=== PATIENT | male | born 1975 ===

== ENCOUNTER 2022-10-30 13:03 | Emergency (ER) | payer BC, SELFPAY ==
--- NOTE | ~2022-10-30 | XR_ITS ---
EXAMINATION: XR CHEST CLINICAL INFORMATION: SOB COMPARISON: None available. TECHNIQUE: Frontal view of the chest was obtained. FINDINGS: No significant abnormality is noted involving the heart, lungs, mediastinum, bony thorax or soft tissues. XR/XR chest 1V IMPRESSION: Unremarkable chest examination.
[2022-10-30 13:07] VITALS: BP 150/103; PULSE 111; RESP 18; TEMP 36.6; O2SAT 96; BMI 32.3
--- NOTE | 2022-10-30 13:07 | ED_ITS ---
HPI - Chest Pain General Chief Complaint: Chest Pain <STANLEY Edmondson - Last Filed: 10/30/22 13:09> Stated Complaint: Chest pain <STANLEY Edmondson Last Filed: 10/30/22 13:09> Time Seen by Provider: 10/30/22 15:44 <STANLEY Edmondson Last Filed: 10/30/22 13:09> Source: patient <STANLEY Mercedes Last Filed: 10/30/22 18:57> Mode of arrival: ambulatory <STANLEY Mercedes Last Filed: 10/30/22 18:57> Limitations: no limitations <STANLEY Mercedes Last Filed: 10/30/22 18:57> History of Present Illness HPI narrative: This is a 47-year-old male presenting to the emergency department with reports of chest pain, shortness of breath, congestion x3 weeks worsening over the past 4 days. Patient reports his chest pain is substernal in nature, n onradiating and at times associated with shortness of breath particularly with deep breathing. Patient does reports recent travel to [place] last week. Patient tells me feels short of breath both at rest and with exertion. No history of DVT or PE. Denies fevers, chills, nausea, vomiting, abdominal pain, headache, vision changes, lower extremity swelling, dizziness and weakness. <STANLEY Mercedes Last Filed: 10/30/22 18:57> Related Data Home Medications: Previous Rx's Medication Instructions Recorded albuterol sulfate 90 mcg/actuation 2 inh inhalation Q4-6H PRN 10/30/22 breath activated powder inhaler shortness of breath or wheezing #1 ea amoxicillin 875 mg-potassium 1 tab PO BID 7 days #14 tabs 10/30/22 clavulanate 125 mg tablet prednisone 20 mg tablet 40 mg PO DAILY 5 days #10 tabs 10/30/22 <STANLEY Edmondson Last Filed: 10/30/22 13:09> Allergies/Adverse Reactions: Allergies Allergy/AdvReac Type Severity Reaction Status Date / Time No Known Allergies Allergy Verified 10/30/22 13:10 <STANLEY Edmondson Last Filed: 10/30/22 13:09> Review of Systems Review of Systems: Constitutional : No Weight loss, No Fever, No Chills, No Fatigue, No Malaise ENT/Mouth : No sore throat, No Rhinorrhea Eyes: No Eye Pain, No Swelling, No Redness Cardiovascular : + Chest Pain, + SOB, + Dyspnea on Exertion, No Orthopnea, No Edema, No Palpitations Respiratory : + Cough, No Sputum, No Wheezing Gastrointestinal : No Nausea, No Vomiting, No Diarrhea, No Constipation, No abdominal Pain, No Hematochezia, No Melena Genitourinary : No Dysuria, No Urinary Frequency, No Hematuria, Musculoskeletal : No joint pain, No Myalgias, No Joint Swelling Skin : No Skin Lesions, No rash Neuro : No Weakness, No Numbness, No Dizziness, No Headache Psych : No Anxiety/Panic, No Depression Heme/Lymph: No Bruising, No Bleeding,No Lymphadenopathy Endocrine : No Polyuria, No Polydipsia All other systems reviewed and are negative <STANLEY Mercedes - Last Filed: 10/30/22 18:57> Yes all other systems are reviewed and are negative <STANLEY Mercedes - Last Filed: 10/30/22 18:57> [facility] Past Medical History Attestation statement: The following information was validated with the patient. <STANLEY Mercedes - Last Filed: 10/30/22 18:57> Source: old records reviewed and nursing notes reviewed <STANLEY Mercedes - Last Filed: 10/30/22 18:57> Social History Social History: Social History Alcohol intake: current Alcohol intake frequency: holidays/special occasions only Smoked in Last 30 Days: No Use of substances other than those prescribed or required for medical reasons: No Advance Directives: No Advance Directives Information Provided: Yes <STANLEY Edmondson - Last Filed: 10/30/22 13:09> Physical Exam Vital Signs: Vital Signs: Last Vital Signs Temp 97.8 F 10/30/22 13:07 Pulse 105 H 10/30/22 16:22 Resp 17 10/30/22 16:22 BP 129/90 H 10/30/22 16:22 Pulse Ox 97 10/30/22 16:22 O2 Del Method Room Air 10/30/22 16:22 BMI result Body Mass Index 32.3 <STANLEY Edmondson - Last Filed: 10/30/22 13:09> Vital Signs: Last Vital Signs Temp 97.8 F 10/30/22 13:07 Pulse 105 H 10/30/22 16:22 Resp 17 10/30/22 16:22 BP 129/90 H 10/30/22 16:22 Pulse Ox 97 10/30/22 16:22 O2 Del Method Room Air 10/30/22 16:22 BMI result Body Mass Index 32.3 vss <STANLEY Mercedes - Last Filed: 10/30/22 18:57> Appearance: Alert.? Oriented X3.? No acute distress.? Head: Normocephalic, atraumatic, no step-offs or deformities Eyes: Pupils equal, round and reactive to light.? Neck: Normal inspection.? Neck supple.? CVS: Normal heart rate and rhythm.? Pulses normal.? Respiratory: No respiratory distress.? Breath sounds normal.? Abdomen: Soft and nontender.? Skin: Skin warm and dry.? Normal skin color.? Normal skin turgor.? Extremities: No lower extremity edema.? No calf ttp. 5/5 strength to bilateral upper and lower extremities Back: No midline tenderness, no C-spine tenderness, full range of motion, no CVA tenderness bilaterally Neuro: Oriented X 3.? No motor deficit.? No sensory deficit. CN 2-12 intact <STANLEY Mercedes - Last Filed: 10/30/22 18:57> Course Course Course Narrative: RME--47yo M c/o cough x3 weeks with assoc chest discomfort and SOB. Recently travel to [place], had sx prior to travel HTNsive in triage 150/103. sating 96% on RA in no distress EKG, COVID/FLU, CXR ordered <STANLEY Edmondson - Last Filed: 10/30/22 13:09> Reevaluation(s) Reevaluation #1: Influenza and COVID negative. X-ray unremarkable. Basic labs pending. <STANLEY Mercedes - Last Filed: 10/30/22 18:57> Time: 16:10 <STANLEY Mercedes - Last Filed: 10/30/22 18:57> Reevaluation #2: Patient's CBC within normal limits. Chemistry with no acute findings. Troponin negative, EKG nonischemic, patient's heart score 1 low score MACE of 0.9-1.7% . D-dimer negative, unlikely that this is PE. This is likely br onchitis. Patient to be discharged home on at that this time due to length of symptoms. Educated patient on diagnosis and treatment plan, answered all question, patient verbalizes understanding. At this time patient will be discharged home, advised to return with new or worsening symptoms. Educated on worrisome signs and symptoms and when to return. At this time I feel comfortable discharge home. <STANLEY Mercedes - Last Filed: 10/30/22 18:57> Time: 18:54 <STANLEY Mercedes - Last Filed: 10/30/22 18:57> Medical Decision Making Medical Decision Making [facility] Narrative: 1608 47-year-old male presents with URI symptoms with associated substernal chest pain and shortness of breath x3 weeks worsening over the past 3-4 days. Recent travel to [place]. No history of DVT or PE. Physical exam benign. Not tachycardic on my exam however for triage patient was tachycardic which seems to have resolved. Also hypertensive. Blood pressure will be rechecked. Likely bronchitis. Other differentials include sinusitis, viral illness. Unlikely that this is PE, pneumonia, pneumothorax, ACS, CHF Plan at this time basic labs, imaging, viral testing. <STANLEY Mercedes - Last Filed: 10/30/22 18:57> Differential Diagnosis Differential Diagnoses: The differential diagnosis associated with the presentation includes <STANLEY Mercedes Last Filed: 10/30/22 18:57> Likely bronchitis. Other differentials include sinusitis, viral illness. Unlikely that this is PE, pneumonia, pneumothorax, ACS, CHF <STANLEY Mercedes Last Filed: 10/30/22 18:57> Admission/Observation Consideration of admission/observation: Escalation of care including admission/observation considered <STANLEY Victoria - Last Filed: 04/11/23 18:57> Unlikely <STANLEY Mercedes - Last Filed: 10/30/22 18:57> Lab Data MDM Lab Attestation statement: I reviewed the patient's lab results. <STANLEY Mercedes - Last Filed: 10/30/22 18:57> Result Diagrams: 10/30/22 16:28 10/30/22 16:28 <STANLEY Edmondson - Last Filed: 10/30/22 13:09> Labs: Lab Results 10/30/22 10/30/22 10/30/22 Range/Units 14:41 14:41 16:28 WBC 4.8 (4.8-10.8) X10*3/uL RBC 5.01 (4.60-5.80) X10*6/uL Hgb 15.8 (14.0-18.0) g/dl Hct 45.0 (42.0-52.0) % MCV 89.8 (80.0-98.0) fL MCH 31.5 (27.0-33.0) pg MCHC 35.1 (31.0-36.0) g/dl RDW 12.2 (11.0-16.0) % Plt Count 269 (160-400) X10*3/uL MPV 9.5 (9.4-12.4) fL Immature Gran % (Auto) 0.2 (0.0-0.4) % Neut % (Auto) 45.1 (45-73) % Lymph % (Auto) 37.0 (20-40) % Garvin % (Auto) 15.8 H (2-11) % Eos % (Auto) 1.5 (0-4) % Baso % (Auto) 0.4 (0-2) % Lymph # (Auto) 1.8 (1.2-4.9) X10*3/uL Garvin # (Auto) 0.8 (0.1-1.2) X10*3/uL Eos # (Auto) 0.1 (0.0-0.4) X10*3/uL Baso # (Auto) 0.0 (0.0-0.2) X10*3/uL Abs Immat Gran (auto) 0.01 (0.00-0.03) X10*3/uL Absolute Neuts (auto) 2.2 (2.0-8.3) x10*3/uL Absolute Nucleated RBC 0.000 (0.0-0.012) X10*3/uL Nucleated RBC % (auto) 0.0 (0.0-0.2) /100WBC D-Dimer High Sensitivty NG/ML Sodium (135-145) mmol/L Potassium (3.3-5.1) mmol/L Chloride (96-108) mmol/L Carbon Dioxide (22-29) mmol/L Anion Gap (12-20) BUN (9-16) mg/dL Creatinine (0.5-1.4) mg/dL Estim Creat Clear Calc Estimated GFR Random Glucose (60-115) mg/dL Calcium (8.4-10.2) mg/dL Total Bilirubin (0.0-1.0) mg/dL AST (5-37) U/L ALT (0-40) U/L Alkaline Phosphatase (39-117) U/L Troponin I High Sens (<3.5-35.0) ng/L Total Protein (6.5-8.0) g/dL Albumin (3.5-5.0) g/dL COVID-19 ([facility]) Negative (Negative) COVID-19 Clin Com See Note Influenza Type A (ANA) Negative (Negative) Influenza Type B (ANA) Negative (Negative) Influenza A & B Note See Note 10/30/22 10/30/22 10/30/22 Range/Units 16:28 16:28 16:28 WBC (4.8-10.8) X10*3/uL RBC (4.60-5.80) X10*6/uL Hgb (14.0-18.0) g/dl Hct (42.0-52.0) % MCV (80.0-98.0) fL MCH (27.0-33.0) pg MCHC (31.0-36.0) g/dl RDW (11.0-16.0) % Plt Count (160-400) X10*3/uL MPV (9.4-12.4) fL Immature Gran % (Auto) (0.0-0.4) % Neut % (Auto) (45-73) % Lymph % (Auto) (20-40) % Garvin % (Auto) (2-11) % Eos % (Auto) (0-4) % Baso % (Auto) (0-2) % Lymph # (Auto) (1.2-4.9) X10*3/uL Garvin # (Auto) (0.1-1.2) X10*3/uL Eos # (Auto) (0.0-0.4) X10*3/uL Baso # (Auto) (0.0-0.2) X10*3/uL Abs Immat Gran (auto) (0.00-0.03) X10*3/uL Absolute Neuts (auto) (2.0-8.3) x10*3/uL Absolute Nucleated RBC (0.0-0.012) X10*3/uL Nucleated RBC % (auto) (0.0-0.2) /100WBC D-Dimer High Sensitivty < 150 NG/ML Sodium 138 (135-145) mmol/L Potassium 4.7 (3.3-5.1) mmol/L Chloride 102 (96-108) mmol/L Carbon Dioxide 28 (22-29) mmol/L Anion Gap 13 (12-20) BUN 15 (9-16) mg/dL Creatinine 1.12 (0.5-1.4) mg/dL Estim Creat Clear Calc 84.1 Estimated GFR > 60 Random Glucose 250 H (60-115) mg/dL Calcium 9.3 (8.4-10.2) mg/dL Total Bilirubin 0.3 (0.0-1.0) mg/dL AST 31 (5-37) U/L ALT 61 H (0-40) U/L Alkaline Phosphatase 66 (39-117) U/L Troponin I High Sens 4.4 (<3.5-35.0) ng/L Total Protein 7.1 (6.5-8.0) g/dL Albumin 4.1 (3.5-5.0) g/dL COVID-19 ([facility]) (Negative) COVID-19 Clin Com Influenza Type A (ANA) (Negative) Influenza Type B (ANA) (Negative) Influenza A & B Note <STANLEY Edmondson - Last Filed: 10/30/22 13:09> Lab Results 10/30/22 10/30/22 10/30/22 Range/Units 14:41 14:41 16:28 WBC 4.8 (4.8-10.8) X10*3/uL RBC 5.01 (4.60-5.80) X10*6/uL Hgb 15.8 (14.0-18.0) g/dl Hct 45.0 (42.0-52.0) % MCV 89.8 (80.0-98.0) fL MCH 31.5 (27.0-33.0) pg MCHC 35.1 (31.0-36.0) g/dl RDW 12.2 (11.0-16.0) % Plt Count 269 (160-400) X10*3/uL MPV 9.5 (9.4-12.4) fL Immature Gran % (Auto) 0.2 (0.0-0.4) % Neut % (Auto) 45.1 (45-73) % Lymph % (Auto) 37.0 (20-40) % Garvin % (Auto) 15.8 H (2-11) % Eos % (Auto) 1.5 (0-4) % Baso % (Auto) 0.4 (0-2) % Lymph # (Auto) 1.8 (1.2-4.9) X10*3/uL Garvin # (Auto) 0.8 (0.1-1.2) X10*3/uL Eos # (Auto) 0.1 (0.0-0.4) X10*3/uL Baso # (Auto) 0.0 (0.0-0.2) X10*3/uL Abs Immat Gran (auto) 0.01 (0.00-0.03) X10*3/uL Absolute Neuts (auto) 2.2 (2.0-8.3) x10*3/uL Absolute Nucleated RBC 0.000 (0.0-0.012) X10*3/uL Nucleated RBC % (auto) 0.0 (0.0-0.2) /100WBC D-Dimer High Sensitivty NG/ML Sodium (135-145) mmol/L Potassium (3.3-5.1) mmol/L Chloride (96-108) mmol/L Carbon Dioxide (22-29) mmol/L Anion Gap (12-20) BUN (9-16) mg/dL Creatinine (0.5-1.4) mg/dL Estim Creat Clear Calc Estimated GFR Random Glucose (60-115) mg/dL Calcium (8.4-10.2) mg/dL Total Bilirubin (0.0-1.0) mg/dL AST (5-37) U/L ALT (0-40) U/L Alkaline Phosphatase (39-117) U/L Troponin I High Sens (<3.5-35.0) ng/L Total Protein (6.5-8.0) g/dL Albumin (3.5-5.0) g/dL COVID-19 ([facility]) Negative (Negative) COVID-19 Clin Com See Note Influenza Type A (ANA) Negative (Negative) Influenza Type B (ANA) Negative (Negative) Influenza A & B Note See Note 10/30/22 10/30/22 10/30/22 Range/Units 16:28 16:28 16:28 WBC (4.8-10.8) X10*3/uL RBC (4.60-5.80) X10*6/uL Hgb (14.0-18.0) g/dl Hct (42.0-52.0) % MCV (80.0-98.0) fL MCH (27.0-33.0) pg MCHC (31.0-36.0) g/dl RDW (11.0-16.0) % Plt Count (160-400) X10*3/uL MPV (9.4-12.4) fL Immature Gran % (Auto) (0.0-0.4) % Neut % (Auto) (45-73) % Lymph % (Auto) (20-40) % Garvin % (Auto) (2-11) % Eos % (Auto) (0-4) % Baso % (Auto) (0-2) % Lymph # (Auto) (1.2-4.9) X10*3/uL Garvin # (Auto) (0.1-1.2) X10*3/uL Eos # (Auto) (0.0-0.4) X10*3/uL Baso # (Auto) (0.0-0.2) X10*3/uL Abs Immat Gran (auto) (0.00-0.03) X10*3/uL Absolute Neuts (auto) (2.0-8.3) x10*3/uL Absolute Nucleated RBC (0.0-0.012) X10*3/uL Nucleated RBC % (auto) (0.0-0.2) /100WBC D-Dimer High Sensitivty < 150 NG/ML Sodium 138 (135-145) mmol/L Potassium 4.7 (3.3-5.1) mmol/L Chloride 102 (96-108) mmol/L Carbon Dioxide 28 (22-29) mmol/L Anion Gap 13 (12-20) BUN 15 (9-16) mg/dL Creatinine 1.12 (0.5-1.4) mg/dL Estim Creat Clear Calc 84.1 Estimated GFR > 60 Random Glucose 250 H (60-115) mg/dL Calcium 9.3 (8.4-10.2) mg/dL Total Bilirubin 0.3 (0.0-1.0) mg/dL AST 31 (5-37) U/L ALT 61 H (0-40) U/L Alkaline Phosphatase 66 (39-117) U/L Troponin I High Sens 4.4 (<3.5-35.0) ng/L Total Protein 7.1 (6.5-8.0) g/dL Albumin 4.1 (3.5-5.0) g/dL COVID-19 ([facility]) (Negative) COVID-19 Clin Com Influenza Type A (ANA) (Negative) Influenza Type B (ANA) (Negative) Influenza A & B Note <STANLEY Mercedes - Last Filed: 10/30/22 18:57> Independent Interpretation I performed an independent interpretation of an: EKG (Ventricular rate of 107, IA normal, QRS normal, QT/QTC normal. EKG with sinus tachycardia no ST elevations or inversions concerning for ischemia.) and Plain X-Ray (Unremarkable) <STANLEY Mercedes - Last Filed: 10/30/22 18:57> Radiology Impression Discussion of test interpretation with radiology: I have reviewed the radiologist's reading. <STANLEY Mercedes - Last Filed: 10/30/22 18:57> Core Measures AMI core measures followed: Yes <STANLEY Mercedes - Last Filed: 10/30/22 18:57> Measure exclusions: not indicated <STANLEY Mercedes - Last Filed: 10/30/22 18:57> Critical Care Time Critical Care Time Critical Care Time: No <STANELY Mercedes - Last Filed: 10/30/22 18:57> Discharge Plan Discharge Clinical Impression: Bronchitis <STANLEY Edmondson Last Filed: 10/30/22 13:09> Patient Disposition: Home, Self-Care <STANLEY Edmondson - Last Filed: 10/30/22 13:09> Instructions: Acute Bronchitis (ED) <STANLEY Edmondson Last Filed: 10/30/22 13:09> Additional Instructions: Take your medications as prescribed. If you were prescribed antibiotics today, it is important that you take your medication to their entirety, do not skip any doses, do not finish them early. Follow-up with your primary care provider this week. Return to the emergency department with new or worsening symptoms. Such as fevers, chills, chest pain, shortness of breath, nausea, vomiting, dizziness, headache, vision changes, lethargy In case of emergency call 911 XR/XR chest 1V IMPRESSION: Unremarkable chest examination. You tested negative for flu and COVID. Your cardiac workup was reassuring you had negative cardiac enzyme an abnormal EKG. Your D-dimer screening test for blood clot was negative, unlikely that this is a blood clot. <STANLEY Edmondosn - Last Filed: 10/30/22 13:09> Prescriptions: New prednisone 20 mg tablet 40 mg PO DAILY 5 Days Qty: 10 0RF amoxicillin-pot clavulanate 875-125 mg tablet 1 tab PO BID 7 Days Qty: 14 0RF albuterol sulfate 90 mcg/actuation aerosol powdr breath activated 2 inh inhalation Q4-6H PRN (Reason: shortness of breath or wheezing) Qty: 1 0RF <STANLEY Edmondson Last Filed: 10/30/22 13:09> Referrals: Kacey Kinsey MD [Primary Care Provider] - 2 days <STANLEY Edmondson - Last Filed: 10/30/22 13:09> Stand Alone Forms: Work/School Release <STANLEY Edmondson - Last Filed: 10/30/22 13:09>
--- NOTE | 2022-10-30 13:07 | ECG_ITS ---
Test Reason : sob Blood Pressure : / mmHG Vent. Rate : 107 BPM Atrial Rate : 107 BPM P-R Int : 154 ms QRS Dur : 090 ms QT Int : 328 ms P-R-T Axes : 040 -21 000 degrees QTc Int : 437 ms Sinus tachycardia Nonspecific T wave abnormality Abnormal ECG No previous ECGs available Referred By: Medina Newton Electronically Signed By:SEVEN MCGRATH MD
[2022-10-30 15:10] LABS: COVID-19 Test Negative (Negative); IDNOW Serial# 08D9AD1C; IDNOW Serial# 9DB6401D; Influenza A Negative (Negative); Influenza B2 Negative (Negative)
[2022-10-30 16:22] VITALS: BP 129/90; PULSE 105; RESP 17; O2SAT 97
[2022-10-30 16:33] LABS: MANUAL DIFF FLAG NO
[2022-10-30 16:40] LABS: Basophils Percent Auto 0.4 % (0-2); Eosinophils Absolute Auto 0.1 X10*3/uL (0.0-0.4); Eosinophils Percent Auto 1.5 % (0-4); Hemoglobin 15.8 g/dl (14.0-18.0); Imm Gran Abs Auto 0.01 X10*3/uL (0.00-0.03); Imm Gran Pct Auto 0.2 % (0.0-0.4); Lymphocytes Absolute Auto 1.8 X10*3/uL (1.2-4.9); Mean Corpuscular HGB Conc 35.1 g/dl (31.0-36.0); Mean Corpuscular Hemoglobin 31.5 pg (27.0-33.0); Mean Corpuscular Volume 89.8 fL (80.0-98.0); Mean Platelet Volume 9.5 fL (9.4-12.4); Monocytes Absolute Auto 0.8 X10*3/uL (0.1-1.2); Monocytes Percent Auto 15.8 % (2-11); Neutrophils Absolute Auto 2.2 x10*3/uL (2.0-8.3); Neutrophils Percent Auto 45.1 % (45-73); Platelet Count 269 X10*3/uL (160-400); Red Blood Count 5.01 X10*6/uL (4.60-5.80); Red Cell Distribution Width 12.2 % (11.0-16.0); White Blood Count 4.8 X10*3/uL (4.8-10.8)
[2022-10-30 16:54] LABS: Alanine Aminotransferase 61 U/L (0-40); Albumin Level 4.1 g/dL (3.5-5.0); Alkaline Phosphatase 66 U/L (39-117); Anion Gap 13 (12-20); Aspartate Amino Transferase 31 U/L (5-37); Bilirubin Total 0.3 mg/dL (0.0-1.0); Blood Urea Nitrogen 15 mg/dL (9-16); Calcium 9.3 mg/dL (8.4-10.2); Carbon Dioxide 28 mmol/L (22-29); Chloride 102 mmol/L (96-108); Creatinine Clr Calc Pharmacy 84.1; Estimated Glomerular Filt Rate > 60; Glucose Random 250 mg/dL (60-115); Potassium 4.7 mmol/L (3.3-5.1); Sodium 138 mmol/L (135-145); Total Protein 7.1 g/dL (6.5-8.0)
[2022-10-30 17:01] LABS: Troponin-I High Sensitivity 4.4 ng/L (<3.5-35.0)
[2022-10-30 18:41] LABS: D Dimer High Sensitivity < 150 NG/ML
== END 2022-10-30 19:13 | disposition home or self-care (01) ==
PROVIDERS: Physician Assistant; Emergency Provider Student in an Organized Health Care Education/Training Program; PCP Internal Medicine
DX: J40 Bronchitis, not specified as acute or chronic (principal); R07.89 Other chest pain; R06.02 Shortness of breath; Z20.822 Contact with and (suspected) exposure to COVID-19; Z20.828 Contact with and (suspected) exposure to other viral communicable diseases; Z79.899 Other long term (current) drug therapy
CPT/HCPCS: 36415; 71045; 80053; 84484; 85025; 85379; 87502; 87635; 93005; 99283; 99284

== ENCOUNTER 2024-01-12 16:19 | Emergency (ER) | payer BC, SELFPAY ==
--- NOTE | ~2024-01-12 | CT_ITS ---
EXAMINATION: CT head/brain wo IV con CLINICAL INFORMATION: headache since Saturday COMPARISON: None. TECHNIQUE: Contiguous axial imaging was performed from the skull base to vertex without intravenous contrast. This CT examination was performed using dose optimization techniques as appropriate, variously including the following: * Automated exposure control * Adjustment of mA and/or kV according to patient size (this includes techniques or standardized protocols for targeted exams where dose is matched to indication/reason for exam; i.e. extremities or head) * Use of iterative reconstruction technique DLP: 650 mGy-cm. FINDINGS: There is no evidence of acute intracranial hemorrhage or territorial infarction. Little to white matter differentiation is well preserved. No abnormal mass effect or midline shift is seen. No extra-axial fluid collections are identified. No hydrocephalus. Mineralization the bilateral basal ganglia. No significant volume loss. There is no abnormal attenuation within the brain parenchyma. The cerebellar tonsils are well positioned. No acute osseous or soft tissue abnormality. Visualized portions of the orbits are unremarkable. Small fluid level in the posterior left ethmoid air cells. Remaining visualized paranasal sinuses and mastoid air cells are well-aerated. CT/CT head/brain wo IV con IMPRESSION: No acute intracranial hemorrhage or edematous territorial infarction.
[2024-01-12 16:33] VITALS: BP 144/102; PULSE 104; RESP 16; TEMP 36.6; O2SAT 97; BMI 31.5
--- NOTE | 2024-01-12 16:38 | ECG_ITS ---
Test Reason : DIZZINESS Blood Pressure : / mmHG Vent. Rate : 102 BPM Atrial Rate : 102 BPM P-R Int : 148 ms QRS Dur : 094 ms QT Int : 338 ms P-R-T Axes : 039 -20 -14 degrees QTc Int : 440 ms Sinus tachycardia Minimal voltage criteria for LVH, may be normal variant ( R in aVL ) Nonspecific T wave abnormality Abnormal ECG When compared with ECG of 30-OCT-2022 13:20, Nonspecific T wave abnormality now evident in Anterior leads Referred By: Jhoan Lozano Electronically Signed By:SEVEN MCGRATH MD
--- NOTE | 2024-01-12 16:41 | ED.GENADULT ---
HPI - General Adult General Chief complaint: Headache Stated complaint: headache since saturday, dizziness since yesterday Time Seen by Provider: 01/12/24 17:17 Source: patient Mode of arrival: ambulatory Limitations: no limitations History of Present Illness ED Provider: ban RIVAS narrative: Patient's history of diabetes on Trulicity and metformin complaining of headache for last 4 days bilateral diffuse headache with no nausea vomiting had some light sensitivity no fever no chills patient's blood sugar is on the higher side on arrival it was 300 recheck was 292 Related Data Previous Rx's ?Medication ?Instructions ?Recorded albuterol sulfate 90 mcg/actuation 2 inh inhalation Q4-6H PRN 10/30/22 breath activated powder inhaler shortness of breath or wheezing #1 ea amoxicillin 875 mg-potassium 1 tab PO BID 7 days #14 tabs 10/30/22 clavulanate 125 mg tablet prednisone 20 mg tablet 40 mg (2 x 20 mg) PO DAILY 5 days 10/30/22 #10 tabs ycnaieydgj-atnyxzqwhzuyj-rzvxmguc 1 tab PO Q6H PRN haeadace #20 tabs 01/12/24 50 mg-325 mg-40 mg tablet Allergies Allergy/AdvReac Type Severity Reaction Status Date / Time No Known Allergies Allergy Verified 01/12/24 16:39 Review of Systems Review of Systems: Yes all other systems are reviewed and are negative [facility] Social History Social History Alcohol intake: current Alcohol intake frequency: holidays/special occasions only Advance Directives: No Advance Directives Information Provided: No Do you have a plan to hurt others: No Plan Physical Exam ED Vital Signs: Vital Signs - 24 hr 01/12/24 16:33 01/12/24 18:29 Temperature 97.9 F 97.9 F Pulse Rate 104 H 104 H Respiratory Rate 16 16 Blood Pressure 144/102 H 144/102 H Pulse Oximetry 97 97 Oxygen Delivery Method Room Air Room Air BMI result Body Mass Index 31.5 Appearance: Alert. Oriented X3. No acute distress. Eyes: PERRLA, No Nystagmus ENT: Pharynx normal. Oral Mucosa moist no temporal artery tenderness Neck: Normal inspection. Neck supple. CVS: Normal heart rate and rhythm. Pulses normal. Respiratory: No respiratory distress. Equal air entry bilateral, no wheezing/rales/rhonchi Abdomen: Soft and nontender. Bowel sounds are present, no mass palpable, no CVA tenderness Skin: Skin warm and dry. Normal skin color. Normal skin turgor. Extremities: No lower extremity edema. No calf tenderness Neuro: Oriented X 3. No motor deficit. No sensory deficit.No cerebellar signs , cranial nerves II-XII intact Course Course Course Narrative: RME: Done by STANLEY Lozano. Patient presents to ED for general headache since last Saturday. Patient denies any recent trauma, neck stiffness, fever, chills, slurred speech, facial droop, positive extremity, loss of vision. Patient taking Motrin and excision for slight relief. Physical exam negative for signs of any neuro deficits. Labs EKG head CT scan ordered Medications Administered Discontinued Medications Generic Name Dose Route Start Last Admin Trade Name Freq PRN Reason Stop Dose Admin Acetaminophen/Butalbital/Caffeine 1 tab 01/12/24 17:47 01/12/24 18:25 Butalb/Acetamin/Caff 50/325/40 Tablet PO 01/12/24 17:48 1 tab ONCE ONE Administration Insulin Human Lispro 6 unit 01/12/24 18:01 01/12/24 18:25 Insulin Lispro 100 Unit/Ml 3 Ml Vial SUBCUT 01/12/24 18:02 6 unit ONCE ONE Administration Medical Decision Making Differential Diagnosis Differential Diagnoses: The differential diagnosis associated with the presentation includes Hyperglycemia/migraine/atypical headache/tension headache/sinusitis Lab Data MDM Lab Attestation statement: I reviewed the patient's lab results. 01/12/24 16:50 01/12/24 16:50 Labs: Lab Results 01/12/24 Range/Units 16:50 WBC 7.8 (4.8-10.8) X10*3/uL RBC 5.20 (4.60-5.80) X10*6/uL Hgb 16.5 (14.0-18.0) g/dl Hct 46.8 (42.0-52.0) % MCV 90.0 (80.0-98.0) fL MCH 31.7 (27.0-33.0) pg MCHC 35.3 (31.0-36.0) g/dl RDW 12.2 (11.0-16.0) % Plt Count 249 (160-400) X10*3/uL MPV 9.5 (9.4-12.4) fL Immature Gran % (Auto) 0.3 (0.0-0.4) % Neut % (Auto) 62.2 (45-73) % Lymph % (Auto) 26.7 (20-40) % Ward % (Auto) 9.8 (2-11) % Eos % (Auto) 0.6 (0-4) % Baso % (Auto) 0.4 (0-2) % Lymph # (Auto) 2.1 (1.2-4.9) X10*3/uL Ward # (Auto) 0.8 (0.1-1.2) X10*3/uL Eos # (Auto) 0.1 (0.0-0.4) X10*3/uL Baso # (Auto) 0.0 (0.0-0.2) X10*3/uL Abs Immat Gran (auto) 0.02 (0.00-0.03) X10*3/uL Absolute Neuts (auto) 4.8 (2.0-8.3) x10*3/uL Absolute Nucleated RBC 0.000 (0.0-0.012) X10*3/uL Nucleated RBC % (auto) 0.0 (0.0-0.2) /100WBC PT 11.2 (11.1-13.3) SEC INR 0.9 (0.9-1.1) APTT 30.0 (26.0-36.8) SEC Sodium 139 (135-145) mmol/L Potassium 3.9 (3.3-5.1) mmol/L Chloride 106 (96-108) mmol/L Carbon Dioxide 21 L (22-29) mmol/L Anion Gap 16 (12-20) BUN 15 (9-16) mg/dL Creatinine 0.97 (0.5-1.4) mg/dL Estim Creat Clear Calc 94.9 Estimated GFR > 60 Random Glucose 300 H (60-115) mg/dL Calcium 9.5 (8.4-10.2) mg/dL Total Bilirubin 0.3 (0.0-1.0) mg/dL AST 30 (5-37) U/L ALT 56 H (0-40) U/L Alkaline Phosphatase 68 (39-117) U/L Troponin I High Sens 3.5 (<3.5-35.0) ng/L Total Protein 8.0 (6.5-8.0) g/dL Albumin 4.4 (3.5-5.0) g/dL Influenza Type A (PCR) NEGATIVE (Negative) Influenza Type B (PCR) NEGATIVE (Negative) RSV RNA Qual (PCR) NEGATIVE (Negative) SARS-CoV-2 RNA (RT-PCR) NEGATIVE (Negative) Independent Interpretation I performed an independent interpretation of an: CT Scan Radiology Impression Discussion of test interpretation with radiology: I have reviewed the radiologist's reading. Discharge Plan Discharge Clinical Impression: Migraine, Controlled diabetes mellitus with hyperglycemia Patient Disposition: Home, Self-Care Instructions: Migraine Headache (ED), Diabetes and Nutrition (ED) Additional Instructions: Drink plenty of fluids Likely have complex migraine Medication for migraine headache as prescribed Take your medicine for diabetes and follow up with specialist Prescriptions: New djzsfkyiom-doearqttezkap-oiwb 50-325-40 mg tablet 1 tab PO Q6H PRN (Reason: haeadace) Qty: 20 0RF No Action prednisone 20 mg tablet 40 mg PO DAILY 5 Days Qty: 10 0RF amoxicillin-pot clavulanate 875-125 mg tablet 1 tab PO BID 7 Days Qty: 14 0RF albuterol sulfate 90 mcg/actuation aerosol powdr breath activated 2 inh inhalation Q4-6H PRN (Reason: shortness of breath or wheezing) Qty: 1 0RF Referrals: Annel Ramírez MD [Physician] - 1 week Interventions: ED Discharge Assessment Last Done: 01/12/24 18:29 Discharge Date/Time: 01/12/24 18:29 Print Language: Indonesian
[2024-01-12 16:55] LABS: MANUAL DIFF FLAG NO
[2024-01-12 16:58] LABS: Basophils Percent Auto 0.4 % (0-2); Eosinophils Absolute Auto 0.1 X10*3/uL (0.0-0.4); Eosinophils Percent Auto 0.6 % (0-4); Hematocrit 46.8 % (42.0-52.0); Hemoglobin 16.5 g/dl (14.0-18.0); Imm Gran Abs Auto 0.02 X10*3/uL (0.00-0.03); Imm Gran Pct Auto 0.3 % (0.0-0.4); Lymphocytes Absolute Auto 2.1 X10*3/uL (1.2-4.9); Lymphocytes Percent Auto 26.7 % (20-40); Mean Corpuscular HGB Conc 35.3 g/dl (31.0-36.0); Mean Corpuscular Hemoglobin 31.7 pg (27.0-33.0); Mean Platelet Volume 9.5 fL (9.4-12.4); Monocytes Absolute Auto 0.8 X10*3/uL (0.1-1.2); Monocytes Percent Auto 9.8 % (2-11); Neutrophils Absolute Auto 4.8 x10*3/uL (2.0-8.3); Neutrophils Percent Auto 62.2 % (45-73); Platelet Count 249 X10*3/uL (160-400); Red Cell Distribution Width 12.2 % (11.0-16.0); White Blood Count 7.8 X10*3/uL (4.8-10.8)
[2024-01-12 17:14] LABS: Alanine Aminotransferase 56 U/L (0-40); Albumin Level 4.4 g/dL (3.5-5.0); Alkaline Phosphatase 68 U/L (39-117); Anion Gap 16 (12-20); Aspartate Amino Transferase 30 U/L (5-37); Bilirubin Total 0.3 mg/dL (0.0-1.0); Blood Urea Nitrogen 15 mg/dL (9-16); Calcium 9.5 mg/dL (8.4-10.2); Carbon Dioxide 21 mmol/L (22-29); Chloride 106 mmol/L (96-108); Creatinine Clr Calc Pharmacy 94.9; Estimated Glomerular Filt Rate > 60; Glucose Random 300 mg/dL (60-115); Potassium 3.9 mmol/L (3.3-5.1); Sodium 139 mmol/L (135-145)
[2024-01-12 17:20] LABS: Troponin-I High Sensitivity 3.5 ng/L (<3.5-35.0)
[2024-01-12 17:34] LABS: Influenza A PCR NEGATIVE (Negative); Influenza B PCR NEGATIVE (Negative); Resp Syncy Virus RNA Qual PCR NEGATIVE (Negative); SARS COV2 PCR INHOUSE NEGATIVE (Negative)
[2024-01-12 17:48] LABS: INTERNATIONAL NORM RATIO 0.9 (0.9-1.1); Prothrombin Time 11.2 SEC (11.1-13.3)
[2024-01-12] MEDS: Insulin Lispro 100 UNIT/ML 3 ML VIAL 6 UNIT SUBCUT (18:25)
[2024-01-12] MEDS: Butalb/Acetamin/Caff 50/325/40 TABLET 1 TAB PO (18:25)
[2024-01-12 18:29] VITALS: BP 144/102; PULSE 104; RESP 16; TEMP 36.6; O2SAT 97
== END 2024-01-12 18:29 | disposition home or self-care (01) ==
PROVIDERS: Physician Assistant; Emergency Provider Internal Medicine; PCP Internal Medicine
DX: G43.909 Migraine, unspecified, not intractable, without status migrainosus (principal); E11.65 Type 2 diabetes mellitus with hyperglycemia; Z79.84 Long term (current) use of oral hypoglycemic drugs; Z03.818 Encounter for observation for suspected exposure to other biological agents ruled out
CPT/HCPCS: 0241U; 36415; 70450; 80053; 84484; 85025; 85610; 85730; 93005; 99283; 99284

== ENCOUNTER → 2024-01-12 16:38 | Outpatient (BNV) | payer BC, SELFPAY | PROVIDERS: Emergency Provider Internal Medicine; PCP Internal Medicine; Visit Provider Internal Medicine Cardiovascular Disease | DX: R94.31 Abnormal electrocardiogram [ECG] [EKG] (principal) | CPT/HCPCS: 93010 ==

== ENCOUNTER 2024-05-23 02:45 | Emergency (ER) | payer BC, SELFPAY ==
[2024-05-23 02:46] VITALS: BP 145/98; PULSE 75; RESP 18; TEMP 36.6; O2SAT 96; BMI 31.6
[2024-05-23 04:00] VITALS: BP 148/95; PULSE 72; RESP 18; O2SAT 97
--- NOTE | 2024-05-23 04:12 | ED_ITS ---
HPI - Back Pain/Injury General Chief Complaint: Back Pain/Injury Stated Complaint: back pain Time Seen by Provider: 05/23/24 04:02 Source: patient Mode of arrival: ambulatory Limitations: no limitations History of Present Illness ED Provider: ban RIVAS Narrative: Patient with no significant past medical history of back problems apparently was attempted to lift something which was stuck to the ground yesterday and since then been having in the lower back no radiation of the pain no paresthesia pain is localized mostly in the right side of the lower back Related Data Previous Rx's ?Medication ?Instructions ?Recorded albuterol sulfate 90 mcg/actuation 2 inh inhalation Q4-6H PRN 10/30/22 breath activated powder inhaler shortness of breath or wheezing #1 ea amoxicillin 875 mg-potassium 1 tab PO BID 7 days #14 tabs 10/30/22 clavulanate 125 mg tablet prednisone 20 mg tablet 40 mg (2 x 20 mg) PO DAILY 5 days 10/30/22 #10 tabs kmcfxhmqev-mwypslkidigfd-yhwivfne 1 tab PO Q6H PRN haeadace #20 tabs 01/12/24 50 mg-325 mg-40 mg tablet cyclobenzaprine 10 mg tablet 10 mg PO Q8H #20 tabs 05/23/24 ibuprofen 600 mg tablet 600 mg PO Q6H PRN fever or pain 05/23/24 #30 tabs oxycodone 5 mg tablet 5 mg PO Q6H PRN pain #20 tabs 05/23/24 Allergies Allergy/AdvReac Type Severity Reaction Status Date / Time No Known Allergies Allergy Verified 05/23/24 02:49 Review of Systems Review of Systems: Yes all other systems are reviewed and are negative [facility] Social History Social History (Reviewed 05/24/24 @ 01:09 EDT by Antwan Johnson MD) Alcohol intake: current Alcohol intake frequency: holidays/special occasions only Smoked in Last 30 Days: No Use of substances other than those prescribed or required for medical reasons: No Advance Directives: No Advance Directives Information Provided: No Physical Exam Vital Signs: Vital Signs: Last Vital Signs Temp 98.2 F 05/23/24 04:19 Pulse 72 05/23/24 04:19 Resp 18 05/23/24 04:19 BP 148/95 H 05/23/24 04:19 Pulse Ox 97 05/23/24 04:19 O2 Del Method Room Air 05/23/24 04:19 BMI result Body Mass Index 31.6 Appearance: Alert. Oriented X3. No acute distress. Eyes: PERRLA, No Nystagmus ENT: Pharynx normal. Oral Mucosa moist Neck: Normal inspection. Neck supple. CVS: Normal heart rate and rhythm. Pulses normal. Respiratory: No respiratory distress. Equal air entry bilateral, Abdomen: Soft and nontender. Bowel sounds are present, no mass palpable, no CVA tenderness back: No midline tenderness tenderness on the right lower lumbar paraspinal area SLR negative bilateral ambulatory in his steady gait Skin: Skin warm and dry. Normal skin color. Normal skin turgor. Extremities: No lower extremity edema. No calf tenderness Neuro: Oriented X 3. No motor deficit. No sensory deficit.No cerebellar signs , cranial nerves II-XII intact Medications Administered Discontinued Medications Generic Name Dose Route Start Last Admin Trade Name Freq PRN Reason Stop Dose Admin Cyclobenzaprine HCl 10 mg 05/23/24 04:12 05/23/24 04:17 Cyclobenzaprine Hcl 10 Mg Tablet PO 05/23/24 04:13 10 mg ONCE ONE Administration Morphine Sulfate 15 mg 05/23/24 04:12 05/23/24 04:17 Morphine Sulfate Immed Release 15 Mg Tablet PO 05/23/24 04:13 15 mg ONCE ONE Administration Medical Decision Making Medical Decision Making [facility] Narrative: Patient with low back strain no signs of spinal cord injuries ambulatory in steady gait likely strain of the paraspinal muscle, x-ray negative for acute Discharge Plan Discharge Clinical Impression: Strain of lumbar region Patient Disposition: Home, Self-Care Instructions: Low Back Strain (ED) Additional Instructions: Rest apply ice Pain medication muscle relaxant as prescribed Ibuprofen for mild pain and oxycodone for severe Prescriptions: New oxycodone 5 mg tablet 5 mg PO Q6H PRN (Reason: pain) Qty: 20 0RF Rx Instructions: Partial Fill upon patient request. cyclobenzaprine 10 mg tablet 10 mg PO Q8H Qty: 20 0RF ibuprofen 600 mg tablet 600 mg PO Q6H PRN (Reason: fever or pain) Qty: 30 0RF No Action jrgusimnwl-svjlhdnwnlwix-sgee 50-325-40 mg tablet 1 tab PO Q6H PRN (Reason: haeadace) Qty: 20 0RF prednisone 20 mg tablet 40 mg PO DAILY 5 Days Qty: 10 0RF amoxicillin-pot clavulanate 875-125 mg tablet 1 tab PO BID 7 Days Qty: 14 0RF albuterol sulfate 90 mcg/actuation aerosol powdr breath activated 2 inh inhalation Q4-6H PRN (Reason: shortness of breath or wheezing) Qty: 1 0RF Interventions: ED Discharge Assessment Last Done: 05/23/24 04:19 Discharge Date/Time: 05/23/24 04:20 Print Language: Lao
[2024-05-23] MEDS: Morphine Sulfate Immed Release 15 MG TABLET PO (04:17)
[2024-05-23] MEDS: Cyclobenzaprine HCl 10 MG TABLET PO (04:17)
[2024-05-23 04:19] VITALS: BP 148/95; PULSE 72; RESP 18; TEMP 36.8; O2SAT 97
== END 2024-05-23 04:20 | disposition home or self-care (01) ==
PROVIDERS: Emergency Provider Internal Medicine; PCP Internal Medicine
DX: S39.012A Strain of muscle, fascia and tendon of lower back, initial encounter (principal); X50.9XXA Other and unspecified overexertion or strenuous movements or postures, initial encounter; Y93.89 Activity, other specified; Y92.9 Unspecified place or not applicable; Y99.9 Unspecified external cause status; Z79.899 Other long term (current) drug therapy
CPT/HCPCS: 99283; 99284

== ENCOUNTER 2024-07-21 03:27 | Emergency (ER) | payer BC, SELFPAY ==
--- NOTE | ~2024-07-21 | CT_ITS ---
EXAMINATION: CT ABDOMEN AND PELVIS WITH CONTRAST CLINICAL INFORMATION: Hematuria. COMPARISON: None available. TECHNIQUE: Multidetector volumetric images were obtained from the superior aspect of the liver through the pubic symphysis following administration 85 mL of Omnipaque 350 intravenous contrast. Sagittal and coronal reformatted images were obtained on the technologist's workstation. Oral contrast: No This CT examination was performed using dose optimization techniques as appropriate, variously including the following: *Automated exposure control *Adjustment of mA and/or kV according to patient size (this includes techniques or standardized protocols for targeted exams where dose is matched to indication/reason for exam; i.e. extremities or head) *Use of iterative reconstruction technique DLP: 609 mGy-cm FINDINGS: LUNG BASES: The visualized lung bases are unremarkable. LIVER, GALLBLADDER, AND BILIARY TREE: The liver is normal in size, shape, and diffusely hypoattenuated. No focal hepatic lesion or biliary ductal dilatation is present. The gallbladder is unremarkable with no evidence of radiopaque gallstones, gallbladder wall thickening, or obvious pericholecystic inflammatory changes. PANCREAS: Unremarkable. SPLEEN: Unremarkable. ADRENAL GLANDS: Unremarkable. KIDNEYS AND URETERS: The kidneys are normal in size, shape, and attenuation. There is normal cortical thickness. Excluded urinary contrast opacifies bilateral kidney pelvis and proximal ureters with no hydroureteronephrosis. Radiopaque calculi cannot be excluded as this segment contrast opacifying the kidney pelvises. Obviously no hydronephrosis seen. BLADDER: Unremarkable. GASTROINTESTINAL TRACT: There is scattered stool and gas seen throughout the colon without distention. The small bowel loops are normal caliber. Appendix is normal caliber. No free air or free fluid seen. ABDOMINAL WALL: No significant hernia is appreciated. LYMPH NODES: Normal. VASCULAR: Unremarkable. PELVIC VISCERA: The prostate gland is normal size. No abnormal pelvic lymph nodes or inguinal hernia seen. OSSEOUS STRUCTURES: No aggressive lytic or sclerotic process seen. There is mild degenerative disc changes with posterior spondylosis L5-S1 disc level. CT/CT abdomen pelvis w IV con IMPRESSION: Limited exam due to excreted IV contrast opacifying both kidney pelvis and proximal ureters. A small radiopaque calculi cannot be excluded. However there is no hydroureteronephrosis seen. The bladder is unremarkable. Fleischner guidelines were followed. Electronically signed by: Oumar Francisco MD 07/21/2024 10:35 AM EST
--- NOTE | ~2024-07-21 | XR_ITS ---
EXAMINATION: XR CHEST CLINICAL INFORMATION: cough COMPARISON: None available. TECHNIQUE: 2 views of the chest were obtained. FINDINGS: No significant abnormality is noted involving the heart, lungs, mediastinum, bony thorax or soft tissues. XR/XR chest 2V IMPRESSION: Unremarkable chest examination. Electronically signed by: Oumar Francisco MD 07/21/2024 09:36 AM [facility]
[2024-07-21 03:35] VITALS: BP 129/89; PULSE 93; RESP 18; TEMP 36.9; O2SAT 98; BMI 31.4
[2024-07-21 03:56] LABS: Basophils Percent Auto 0.2 % (0-2); Eosinophils Absolute Auto 0.1 X10*3/uL (0.0-0.4); Eosinophils Percent Auto 0.6 % (0-4); Hematocrit 45.5 % (42.0-52.0); Hemoglobin 16.3 g/dl (14.0-18.0); Imm Gran Abs Auto 0.11 X10*3/uL (0.00-0.03); Imm Gran Pct Auto 0.6 % (0.0-0.4); Lymphocytes Absolute Auto 3.3 X10*3/uL (1.2-4.9); Lymphocytes Percent Auto 18.7 % (20-40); MANUAL DIFF FLAG SCAN; Mean Corpuscular HGB Conc 35.8 g/dl (31.0-36.0); Mean Corpuscular Volume 89.4 fL (80.0-98.0); Mean Platelet Volume 9.6 fL (9.4-12.4); Monocytes Absolute Auto 1.5 X10*3/uL (0.1-1.2); Monocytes Percent Auto 8.7 % (2-11); Neutrophils Absolute Auto 12.5 x10*3/uL (2.0-8.3); Neutrophils Percent Auto 71.2 % (45-73); Platelet Count 225 X10*3/uL (160-400); Red Blood Count 5.09 X10*6/uL (4.60-5.80); Red Cell Distribution Width 11.9 % (11.0-16.0); SCAN SMEAR FLAG 1; White Blood Count 17.5 X10*3/uL (4.8-10.8)
[2024-07-21 04:07] LABS: Appearance Urine Turbid; Color Urine RED; Glucose Urine UA 500 mg/dL (Negative); Leukocyte Esterase Urine Negative (Negative); Nitrite Urine Negative (Negative); Specific Gravity - Urine >= 1.030 (1.005-1.025); UMIC TRIGGER UACC YES; Urine Blood Large (3+) (Negative); Urine Ketones >=80 mg/dL (Negative); Urine Protein 300 (3+) mg/dL (Neg-Trace)
[2024-07-21 04:15] LABS: Alanine Aminotransferase 48 U/L (0-40); Albumin Level 4.4 g/dL (3.5-5.0); Alkaline Phosphatase 74 U/L (39-117); Anion Gap 15 (12-20); Aspartate Amino Transferase 23 U/L (5-37); Bacteria Urine Trace (None Seen); Bilirubin Total 0.9 mg/dL (0.0-1.0); Blood Urea Nitrogen 13 mg/dL (9-16); Calcium 9.8 mg/dL (8.4-10.2); Carbon Dioxide 24 mmol/L (22-29); Chloride 102 mmol/L (96-108); Estimated Glomerular Filt Rate > 60; Glucose Random 278 mg/dL (60-115); Hyaline Casts Urine 0-2 /LPF (0-2); RBC Urine >20 /HPF (0-2); Sodium 137 mmol/L (135-145); Squamous Epithelial Cell Urine 0-2 /HPF (0-2); Total Protein 8.2 g/dL (6.5-8.0); WBC Urine 0-5 /HPF (0-5)
[2024-07-21 04:22] LABS: SLIDE REVIEW VERIFIED
[2024-07-21 06:39] VITALS: BP 119/80; PULSE 85; RESP 18; TEMP 37; O2SAT 97
[2024-07-21 08:22] VITALS: BP 131/83; PULSE 74; RESP 18; TEMP 36.6; O2SAT 95
--- NOTE | 2024-07-21 08:24 | ED.MALEGU ---
HPI - Male Genitourinary General Chief complaint: Urogenital-Male Stated complaint: blood in urine Time Seen by Provider: 07/21/24 08:19 Source: patient Mode of arrival: ambulatory Limitations: no limitations History of Present Illness HPI Narrative: This is a 48 years old male with a history of diabetes presented to the ED with a history of frequency and hematuria he is also describing body aches generalized malaise and chills. No reported fever the Onset (ago): day(s) (2) Duration: improved Severity: mild Quality: aching Relieving factors: none Exacerbating factors: none Related Data Previous Rx's ?Medication ?Instructions ?Recorded albuterol sulfate 90 mcg/actuation 2 inh inhalation Q4-6H PRN 10/30/22 breath activated powder inhaler shortness of breath or wheezing #1 ea amoxicillin 875 mg-potassium 1 tab PO BID 7 days #14 tabs 10/30/22 clavulanate 125 mg tablet prednisone 20 mg tablet 40 mg (2 x 20 mg) PO DAILY 5 days 10/30/22 #10 tabs rcbzvjewll-cwzncucypgbqo-acgslakk 1 tab PO Q6H PRN haeadace #20 tabs 01/12/24 50 mg-325 mg-40 mg tablet cyclobenzaprine 10 mg tablet 10 mg PO Q8H #20 tabs 05/23/24 ibuprofen 600 mg tablet 600 mg PO Q6H PRN fever or pain 05/23/24 #30 tabs oxycodone 5 mg tablet 5 mg PO Q6H PRN pain #20 tabs 05/23/24 Allergies Allergy/AdvReac Type Severity Reaction Status Date / Time No Known Allergies Allergy Verified 07/21/24 03:36 Review of Systems Constitutional: Constitutional: Reports no additional constitutional complaints ENT: Reports system reviewed and no additional complaints, except as documented Cardiovascular: Cardiovascular: Reports no additional cardiovascular complaints Respiratory: Respiratory: Reports no additional respiratory complaints PENDING SALE TO [facility] Past Medical History Attestation statement: The following information was validated with the patient. PENDING SALE TO [facility] Narrative: Diabetes Social History Social History Alcohol intake: current Alcohol intake frequency: holidays/special occasions only Physical Exam Vital Signs: Vital Signs: Last Vital Signs Temp 98.0 F 07/21/24 11:49 Pulse 79 07/21/24 11:49 Resp 20 07/21/24 11:49 BP 126/85 07/21/24 11:49 Pulse Ox 97 07/21/24 11:49 O2 Del Method Room Air 07/21/24 11:49 BMI result Body Mass Index 31.4 not toxic Const: General: cooperative, comfortable, no acute distress and well developed Nutritional Appearance: average body habitus Orientation/consciousness: patient oriented x3 Limitations: no limitations HEENT: Head: Yes normal to inspection General nose exam: Normal external nose present Face and sinus: Yes normal facial exam Mouth: Normal oral and palatal mucosa present Neck: Neck: Yes normal visual inspection Chest: Chest palpation & inspection: normal inspection of the chest Resp: Effort & Inspection: normal respiratory effort and able to speak in complete sentences Auscultation: clear to auscultation bilaterally Cardio: Jugular venous distension: no JVD Rate: regular rate Rhythm: regular rhythm GI: Inspection: Yes normal to inspection Palpation (GI): Soft to palpation, not firm, nontender and no guarding Auscultation: normal bowel sounds Skin: General skin exam: no rashes or lesions noted Lesions: no lesions Rashes: no rashes Neuro: General: patient oriented x3 Course Reevaluation(s) Reevaluation #1: Patient remain hemodynamically stable afebrile not toxic, CT scan of the abdomen and pelvis was negative and chest x-ray was negative. His white count is elevated at 17.5; lactic acid is normal. Shared decision making with the patient and ;patient is comfortable to go home, I explained to him that blood culture are pending and urinary culture are pending , patient received 1 g of ceftriaxone prior to discharge( pending urinary culture). Patient and very comfortable with the plan of care. He has a primary care physician he will see him on Saturday, I explained that the white counts need to be repeated by PCP also will need follow-up with Urology because of the hematuria. Pt and again very comfortable with plan of care Reevaluation #2: I also placed a phone call to his PCP (Ceferino),spoke with [facility] nurse they will call the pt and see him in 2days Time: 11:54 Medications Administered Discontinued Medications Generic Name Dose Route Start Last Admin Trade Name Freq PRN Reason Stop Dose Admin Ceftriaxone Sodium 1 gm 07/21/24 10:45 07/21/24 11:09 Ceftriaxone Sodium 1 Gm Vial IVPUSH 07/21/24 10:46 1 gm ONCE ONE Administration Sodium Chloride 1,000 mls @ 999 mls/hr 07/21/24 08:30 07/21/24 10:02 Ns IVCONT 07/21/24 09:30 Infused .Q1H1M CLAUDETTE Infusion Iohexol 100 ml 07/21/24 09:58 07/21/24 09:59 Iohexol 350 Mg/Ml 100 Ml Infus..Btl IV 07/21/24 09:59 85 ml ONCE ONE Administration Ondansetron HCl 4 mg 07/21/24 11:13 07/21/24 11:14 Ondansetron Hcl 4 Mg/2 Ml Vial IVPUSH 07/21/24 11:14 4 mg ONCE ONE Administration Medical Decision Making Medical Decision Making [facility] Narrative: Patient presented with hematuria frequency we will get UA labs and reassessed 11 AM remain stable afebrile and non toxic,repeat vital T 98.6,p 70,,BP 11/71 ct scan abdomen and pelvis normal,UA showed RBC but no WBC, WBC noted but normal lactic acid .Pt confortable to go home we have urine culture and blood culture pending will give 1 gr ceftriaxone pending culture Differential Diagnosis Differential Diagnoses: The differential diagnosis associated with the presentation includes Urinary tract infection/kidney stone/pyelonephritis Admission/Observation Consideration of admission/observation: Escalation of care including admission/observation considered Lab Data [facility] Lab Attestation statement: I reviewed the patient's lab results. 07/21/24 03:51 07/21/24 03:51 Labs: Lab Results 07/21/24 07/21/24 07/21/24 Range/Units 03:51 08:44 09:01 WBC 17.5 H (4.8-10.8) X10*3/uL RBC 5.09 (4.60-5.80) X10*6/uL Hgb 16.3 (14.0-18.0) g/dl Hct 45.5 (42.0-52.0) % MCV 89.4 (80.0-98.0) fL MCH 32.0 (27.0-33.0) pg MCHC 35.8 (31.0-36.0) g/dl RDW 11.9 (11.0-16.0) % Plt Count 225 (160-400) X10*3/uL MPV 9.6 (9.4-12.4) fL Immature Gran % (Auto) 0.6 H (0.0-0.4) % Neut % (Auto) 71.2 (45-73) % Lymph % (Auto) 18.7 L (20-40) % [place] % (Auto) 8.7 (2-11) % Eos % (Auto) 0.6 (0-4) % Baso % (Auto) 0.2 (0-2) % Lymph # (Auto) 3.3 (1.2-4.9) X10*3/uL [place] # (Auto) 1.5 H (0.1-1.2) X10*3/uL Eos # (Auto) 0.1 (0.0-0.4) X10*3/uL Baso # (Auto) 0.0 (0.0-0.2) X10*3/uL Abs Immat Gran (auto) 0.11 H (0.00-0.03) X10*3/uL Absolute Neuts (auto) 12.5 H (2.0-8.3) x10*3/uL Absolute Nucleated RBC 0.000 (0.0-0.012) X10*3/uL Nucleated RBC % (auto) 0.0 (0.0-0.2) /100WBC Smear Tech's Comments VERIFIED Sodium 137 (135-145) mmol/L Potassium 4.0 (3.3-5.1) mmol/L Chloride 102 (96-108) mmol/L Carbon Dioxide 24 (22-29) mmol/L Anion Gap 15 (12-20) BUN 13 (9-16) mg/dL Creatinine 1.01 (0.5-1.4) mg/dL Estim Creat Clear Calc 91.0 Estimated GFR > 60 Random Glucose 278 H (60-115) mg/dL Lactic Acid 1.0 (0.5-2.0) mmol/L Calcium 9.8 (8.4-10.2) mg/dL Total Bilirubin 0.9 (0.0-1.0) mg/dL AST 23 (5-37) U/L ALT 48 H (0-40) U/L Alkaline Phosphatase 74 (39-117) U/L Total Protein 8.2 H (6.5-8.0) g/dL Albumin 4.4 (3.5-5.0) g/dL Urine Color RED Urine Appearance Turbid Urine pH 6.0 (5.0-9.0) Ur Specific [place] >= 1.030 H (1.005-1.025) Urine Protein 300 (3+) H (Neg-Trace) mg/dL Urine Glucose (UA) 500 H (Negative) mg/dL Urine Ketones >=80 (Negative) mg/dL Urine Blood Large (3+) H (Negative) Urine Nitrite Negative (Negative) Ur Leukocyte Esterase Negative (Negative) Urine RBC >20 H (0-2) /HPF Urine WBC 0-5 (0-5) /HPF Ur Squamous Epith Cells 0-2 (0-2) /HPF Urine Bacteria Trace (None Seen) Hyaline Casts 0-2 (0-2) /LPF Influenza Type A (PCR) NEGATIVE (Negative) Influenza Type B (PCR) NEGATIVE (Negative) RSV RNA Qual (PCR) NEGATIVE (Negative) SARS-CoV-2 RNA (RT-PCR) NEGATIVE (Negative) Independent Interpretation I performed an independent interpretation of an: CT Scan Radiology Impression Discussion of test interpretation with radiology: I have reviewed the radiologist's reading. Radiologist Impression: GASTROINTESTINAL TRACT: There is scattered stool and gas seen throughout the colon without distention. The small bowel loops are normal caliber. Appendix is normal caliber. No free air or free fluid seen. ABDOMINAL WALL: No significant hernia is appreciated. LYMPH NODES: Normal. VASCULAR: Unremarkable. PELVIC VISCERA: The prostate gland is normal size. No abnormal pelvic lymph nodes or inguinal hernia seen. OSSEOUS STRUCTURES: No aggressive lytic or sclerotic process seen. There is mild degenerative disc changes with posterior spondylosis L5-S1 disc level. CT/CT abdomen pelvis w IV con IMPRESSION: Limited exam due to excreted IV contrast opacifying both kidney pelvis and proximal ureters. A small radiopaque calculi cannot be excluded. However there is no hydroureteronephrosis seen. The bladder is unremarkable. Fleischner guidelines were followed. Independent Historian Clinical information obtained from an independent historian. History obtained from or confirmed by: Spouse Chronic Conditions Patient?s care impacted by: Diabetes Discharge Plan Discharge Clinical Impression: Hematuria Qualifiers: Hematuria type: gross Qualified Code(s): R31.0 - Gross hematuria Patient Disposition: Home, Self-Care Instructions: Hematuria (ED) Additional Instructions: As we discussed you white cell count was elevated at 17.5 , but the chest x-ray, and CT scan of the abdomen and pelvis were normal. We sent blood culture urinary culture which are both pending. You received 1 dose of IV antibiotic. You should follow-up with your primary care physician the day after tomorrow have the white count to recheck as outpatient. You should return to the emergency room if you have fever if you feeling worse. Also you should follow-up with urology for the hematuria we will give you the number and adress of dr Cerda environmental protection economist Today Prescriptions: No Action zwoaxvvjov-obitijmthrddr-pvbj 50-325-40 mg tablet 1 tab PO Q6H PRN (Reason: haeadace) Qty: 20 0RF oxycodone 5 mg tablet 5 mg PO Q6H PRN (Reason: pain) Qty: 20 0RF Rx Instructions: Partial Fill upon patient request. cyclobenzaprine 10 mg tablet 10 mg PO Q8H Qty: 20 0RF ibuprofen 600 mg tablet 600 mg PO Q6H PRN (Reason: fever or pain) Qty: 30 0RF prednisone 20 mg tablet 40 mg PO DAILY 5 Days Qty: 10 0RF amoxicillin-pot clavulanate 875-125 mg tablet 1 tab PO BID 7 Days Qty: 14 0RF albuterol sulfate 90 mcg/actuation aerosol powdr breath activated 2 inh inhalation Q4-6H PRN (Reason: shortness of breath or wheezing) Qty: 1 0RF Referrals: Robert Shah MD [Physician] - 07/27/24 Kacey Kinsey MD [Primary Care Provider] - 07/23/24 Stand Alone Forms: Work/School Release Interventions: ED Discharge Assessment Last Done: 07/21/24 11:49 Discharge Date/Time: 07/21/24 11:50 Print Language: Ukrainian
[2024-07-21] MEDS: 0.9 % Sodium Chloride 1,000 ML 999 ML IVCONT (08:38)
[2024-07-21 09:27] LABS: Influenza A PCR NEGATIVE (Negative); Influenza B PCR NEGATIVE (Negative); Resp Syncy Virus RNA Qual PCR NEGATIVE (Negative); SARS COV2 PCR INHOUSE NEGATIVE (Negative)
[2024-07-21] MEDS: iohexoL 350 MG/ML 100 ML INFUS..BTL IV (09:59)
[2024-07-21 10:49] VITALS: BP 111/71; PULSE 70; RESP 18; TEMP 37; O2SAT 96
[2024-07-21] MEDS: cefTRIAXone sodium 1 GM VIAL IVPUSH (11:09)
[2024-07-21] MEDS: ondansetron HCL 4 MG/2 ML VIAL IVPUSH (11:14)
[2024-07-21 11:20] VITALS: BP 126/85; PULSE 79; RESP 20; TEMP 36.7; O2SAT 97
[2024-07-21 11:49] VITALS: BP 126/85; PULSE 79; RESP 20; TEMP 36.7; O2SAT 97
== END 2024-07-21 11:50 | disposition home or self-care (01) ==
PROVIDERS: Emergency Provider Emergency Medicine; PCP Internal Medicine
DX: R31.0 Gross hematuria (principal); M79.10 Myalgia, unspecified site; R11.0 Nausea; R53.81 Other malaise; R10.2 Pelvic and perineal pain; R05.9 Cough, unspecified; Z79.899 Other long term (current) drug therapy; Z03.818 Encounter for observation for suspected exposure to other biological agents ruled out
CPT/HCPCS: 0241U; 36415; 71046; 74177; 80053; 81001; 81003; 83605; 85025; 87040; 96361; 96374; 96375; 99283; 99284; J0696; J2405; Q9967

== ENCOUNTER → 2024-07-21 08:28 | Outpatient (BNV) | payer BC, SELFPAY | PROVIDERS: Emergency Provider Emergency Medicine; PCP Internal Medicine; Visit Provider Radiology Diagnostic Radiology | DX: R07.9 Chest pain, unspecified (principal); R31.0 Gross hematuria | CPT/HCPCS: 71046; 74177 ==

== ENCOUNTER 2024-07-27 09:56 | Outpatient (REF) | payer BC, SELFPAY ==
[2024-07-27 16:43] LABS: Urine Cytology See Pathology rpt
== END 2024-07-27 09:57 | disposition home or self-care (01) ==
LOC: HO.LNP 09:56
PROVIDERS: PCP Internal Medicine; Visit Provider Urology
DX: R31.0 Gross hematuria (principal)
CPT/HCPCS: 81003; 88112

== ENCOUNTER 2024-07-27 09:56 | Outpatient (AMB) | payer BC, SELFPAY ==
--- NOTE | 2024-07-26 17:23 | A.OFFVIS_ITS ---
Intake Visit Reasons: [facility] Follow Up: Gross Hematuria Intake Note: Patient is present for [facility] Follow up Hematuria (07/21 Urologty Med: None Antibioitic Allergy: None Blood Thinner: None Menagerie Superintendent Required: No Accompanied by: Self / Same As Patient Allergies No Known Allergies Allergy (Verified 07/27/24 10:14) HPI Comments Details: 07/27/24--48 years old male with a history of diabetes presented to the ED on 07/21/2024 with a history of chills 2 days and start of blood urine day of presentation to ED. He was treated with 1 g of ceftriaxone. Urine and blood cultures came back no growth. He states that he has not had any further blood in the urine. He was not given any antibiotics on discharge. He states he has never had issue in the past. He denies history of cigarette use. We will send urine for cytology in follow-up office cystoscopy. 07/21/24--CTAP w IV contrast--Limited exam due to excreted IV contrast opacifying both kidney pelvis and proximal ureters. A small radiopaque calculi cannot be excluded. However there is no hydroureteronephrosis seen. The bladder is unremarkable. [facility] Medical History Hematuria H/O urinary frequency Chest pain Generalized headaches Social History Alcohol intake: current Alcohol intake frequency: holidays/special occasions o nly Review of Systems Const All systems reviewed & are unremarkable except as noted in HPI and below Reports no additional complaints Eyes Reports no additional complaints ENT Reports no additional complaints Card Reports no additional complaints Resp Reports no additional complaints GI Reports no additional complaints Reports as per HPI Musc Reports no additional complaints Skin/Breast Reports system reviewed and no additional complaints, except as documented Neuro Reports no additional complaints Psych Reports no additional complaints Endo Reports no additional complaints Tello/Lymph Reports no additional complaints Aller/Immun Reports no additional complaints Physical Exam Const General: healthy appearing, no acute distress and well developed Orientation/consciousness: patient oriented x3 HEENT Head: Yes normocephalic and Yes atraumatic Eyes Conjunctivae: conjunctivae normal Neck Neck: Yes normal visual inspection Chest Chest palpation & inspection: normal inspection of the chest Resp Effort & Inspection: normal respiratory effort Cardio Rate: regular rate GI Inspection: Yes normal to inspection Neuro General: patient oriented x3 Extrem General: No pedal edema Psych Appearance: grossly normal Affect: normal affect Results AMB Urinalysis, Automated UA Leukoctes 0 Hitesh/uL Last Edit by Selena Pacheco [facility] on 07/27/24 10:23 UA Nitrite Negative Last Edit by Selena Pacheco [facility] on 07/27/24 10:23 UA Urobilinogen 0.2 mg/dL Last Edit by Selena Pacheco [facility] on 07/27/24 10:2 3 UA Protein 15 mg/dL Last Edit by Selena Pacheco [facility] on 07/27/24 10:23 UA pH 5.5 Last Edit by Selena Pacheco [facility] on 07/27/24 10:23 UA Blood 0 Gregorio/uL Last Edit by Selena Pacheco [facility] on 07/27/24 10:23 UA Specific [place] 1.030 Last Edit by Selena Pacheco [facility] on 07/27/24 10: 23 UA Ketone Negative Last Edit by Selena Pacheco [facility] on 07/27/24 10:23 UA Bilirubin 0 mg/dL Last Edit by Selena Pacheco [facility] on 07/27/24 10:23 UA Glucose 0 mg/dL Last Edit by Selena Pacheco [facility] on 07/27/24 10:23 Results Reviewed Results Reviewed: Laboratory Last Values Urine pH (Auto) 5.5 07/27/24 10:14 Specific [place] (Auto) 1.030 07/27/24 10:14 Urine Protein (Auto) 15 mg/dL 07/27/24 10:14 Glucose (UA)(Auto) 0 mg/dL 07/27/24 10:14 Urine Ketones (Auto) Negative 07/27/24 10:14 Urine Blood (Auto) 0 Gregorio/uL 07/27/24 10:14 Urine Nitrite (Auto) Negative 07/27/24 10:14 Urine Bilirubin (Auto) 0 mg/dL 07/27/24 10:14 Urine Urobilinogen (Auto) 0.2 mg/dL 07/27/24 10:14 Leukocyte Esterase (Auto) 0 Hitesh/uL 07/27/24 10:14 Date of Service: 07/21/24 CT ABDOMEN AND PELVIS WITH CONTRAST CLINICAL INFORMATION: Hematuria. COMPARISON: None available. TECHNIQUE: Multidetector volumetric images were obtained from the superior aspect of the liver through the pubic symphysis following administration 85 mL of Omnipaque 350 intravenous contrast. Sagittal and coronal reformatted images were obtained on the technologist's workstation. Oral contrast: No This CT examination was performed using dose optimization techniques as appropriate, variously including the following: *Automated exposure control *Adjustment of mA and/or kV according to patient size (this includes techniques or standardized protocols for targeted exams where dose is matched to indication/reason for exam; i.e. extremities or head) *Use of iterative reconstruction technique DLP: 609 mGy-cm FINDINGS: LUNG BASES: The visualized lung bases are unremarkable. LIVER, GALLBLADDER, AND BILIARY TREE: The liver is normal in size, shape, and diffusely hypoattenuated. No focal hepatic lesion or biliary ductal dilatation is present. The gallbladder is unremarkable with no evidence of radiopaque gallstones, gallbladder wall thickening, or obvious pericholecystic inflammatory changes. PANCREAS: Unremarkable. SPLEEN: Unremarkable. ADRENAL GLANDS: Unremarkable. KIDNEYS AND URETERS: The kidneys are normal in size, shape, and attenuation. There is normal cortical thickness. Excluded urinary contrast opacifies bilateral kidney pelvis and proximal ureters with no hydroureteronephrosis. Radiopaque calculi cannot be excluded as this segment contrast opacifying the kidney pelvises. Obviously no hydronephrosis seen. BLADDER: Unremarkable. GASTROINTESTINAL TRACT: There is scattered stool and gas seen throughout the colon without distention. The small bowel loops are normal caliber. Appendix is normal caliber. No free air or free fluid seen. ABDOMINAL WALL: No significant hernia is appreciated. LYMPH NODES: Normal. VASCULAR: Unremarkable. PELVIC VISCERA: The prostate gland is normal size. No abnormal pelvic lymph nodes or inguinal hernia seen. OSSEOUS STRUCTURES: No aggressive lytic or sclerotic process seen. There is mild degenerative disc changes with posterior spondylosis L5-S1 disc level. IMPRESSION: Limited exam due to excreted IV contrast opacifying both kidney pelvis and proximal ureters. A small radiopaque calculi cannot be excluded. However there is no hydroureteronephrosis seen. The bladder is unremarkable. Assessment & Plan Assessment & Plan (1) Screening PSA (prostate specific antigen): Code(s): Z12.5 - Encounter for screening for malignant neoplasm of prostate Category: Medical (2) Gross hematuria: Code(s): R31.0 - Gross hematuria Category: Medical Plan PSA screening in 3 weeks, follow-up office cystoscopy in 4 weeks. Orders: Orders AMB Urinalysis Automated Today Z13.9 - Encounter for screening, unspecified PSA,Total (Free>4and<10) 3 Weeks Z12.5 - Encounter for screening for malignant neoplasm of prostate Urine Cytology Today R31.0 - Gross hematuria Medications: Discontinued amoxicillin-pot clavulanate 875-125 mg Discontinued Reason: Patient no longer taking 1 tab PO BID 7 days 14 tabs 0RF oxycodone Partial Fill upon patient request. Discontinued Reason: Patient no longer taking 5 mg PO Q6H PRN 20 tabs 0RF p ain prednisone Discontinued Reason: Patient no longer taking 40 mg (2 x 20 mg) PO DAILY 5 days 10 tabs 0RF vxsjchrnfe-saqaafujegnkr-vtfa 50-325-40 mg Discontinued Reason: Patient no longer taking 1 tab PO Q6H PRN 20 tabs 0RF haeadace Patient Instructions: The patient had an opportunity to ask questions regarding treatment plan. The patient expressed understanding and agreement with the above treatment plan. The patient is aware they should contact our office by phone for worsening of their current condition or the appearance of new symptoms. Compliance is encouraged with any medications and followup testing that is ordered. It is a privilege to be allowed the opportunity to participate in the urologic care of your patient. If you have any questions or concerns regarding treatment for the above conditions please do not hesitate to contact me. The office telephone contact is [phone]. This note is constructed in part using voice recognition software. While every effort has been made to ensure accuracy librarian helper errors may have been included. Yours sincerely, Robert Shah MD Coding Level of Care Code New Pt Level 4 (70819) Diagnoses Screening PSA (prostate specific antigen) Z12.5 Gross hematuria R31.0
== END 2024-07-27 10:47 | disposition home or self-care (01) ==
PROVIDERS: PCP Internal Medicine; Visit Provider Urology
DX: Z12.5 Encounter for screening for malignant neoplasm of prostate (principal); R31.0 Gross hematuria; Z13.9 Encounter for screening, unspecified
CPT/HCPCS: 99204

== ENCOUNTER 2024-08-25 06:03 | Outpatient (REF) | payer BC, SELFPAY ==
[2024-08-25 08:15] LABS: PSA,Total (Free>4and<10) 0.58 ng/mL (0.00-4.00)
== END 2024-08-25 06:04 | disposition home or self-care (01) ==
LOC: HO.LAB 06:03
PROVIDERS: PCP Internal Medicine; Visit Provider Urology
DX: Z12.5 Encounter for screening for malignant neoplasm of prostate (principal)
CPT/HCPCS: 36415; 84153

== ENCOUNTER 2024-08-27 11:03 | Outpatient (AMB) | payer BC, SELFPAY ==
--- NOTE | 2024-08-27 11:07 | A.OFFVIS_ITS ---
Intake Visit Reasons: cysto/PSA Intake Note: Patient is Present for Cystoscopy(Gross Hematuria) Urology Med: None Antibiotic Allergy: None Blood Thinner:None URO- G Disposable Cystoscope lot: [id number] exp:03/26/2027 Crushing Mill Operator Required: No Accompanied by: Self / Same As Patient Allergies No Known Allergies Allergy (Verified 08/27/24 11:28) HPI Comments Details: 08/27/24--Here for cystoscopy. LV 07/27/24 seen in evaluation for hematuria, urine sent for cytology came back negative for malignant cells. He had CTAPwIV contrast-07/21/24-negative for renal mass. Cystoscopy findings: No suspicious bladder lesions visualized. 07/27/24--48 years old male with a history of diabetes presented to the ED on 07/21/2024 with a history of chills 2 days and start of blood urine day of presentation to ED. He was treated with 1 g of ceftriaxone. Urine and blood cultures came back no growth. He states that he has not had any further blood in the urine. He was not given any antibiotics on discharge. He states he has never had issue in the past. He denies history of cigarette use. We will send urine for cytology in follow-up office cystoscopy. 07/21/24--CTAP w IV contrast--Limited exam due to excreted IV contrast opacifying both kidney pelvis and proximal ureters. A small radiopaque calculi cannot be excluded. However there is no hydroureteronephrosis seen. The bladder is unremarkable. [facility] Medical History Hematuria H/O urinary frequency Chest pain Generalized headaches Social History Alcohol intake: current Alcohol intake frequency: holidays/special occasions only Review of Systems Const All systems reviewed & are unremarkable except as noted in HPI and below Reports no additional complaints Eyes Reports no additional complaints ENT Reports no additional complaints Card Reports no additional complaints Resp Reports no additional complaints GI Reports no additional complaints Reports as per HPI Musc Reports no additional complaints Skin/Breast Reports system reviewed and no additional complaints, except as documented Neuro Reports no additional complaints Psych Reports no additional complaints Endo Reports no additional complaints Tello/Lymph Reports no additional complaints Aller/Immun Reports no additional complaints Office Procedures Cystoscopy Consent Discussed risk and benefit or proposed procedure with the patient. Information consent for procedure given to the patient. Discussed technical aspects, risks, benefits and alternatives in full. Addressed all of the patient's questions and concerns regarding the procedure. The patient demonstrated knowledge and understanding. They wish to proceed with this procedure. Preparation The patient was prepped in the usual manner. A loan services professional was present and in the room. Genitalia was prepped with betadine solution in a sterile manner. Lidocaine Jelly 2% was placed into the urethra and 16Fr flexible Olympus cystoscope was inserted into the meatus after adequate lubrication. Procedure Time out per protocol performed. Bladder Inspection Bladder Inspection: The bladder was inspected in its entirety with utilization retroflexion displaying: Tumor(s): no suspicious bladder lesions visualized Trabeculation: Saida Mucosal Erthema: NA Orifices: normal shape and position Urethra: normal Cystoscopy findings: prostatic urethra non obstructive, bulbous urethra WNL, no suspicious bladder lesions visualized [id number] DISPOSABLE SCOPE URO-G FLEXIBLE SCOPE Procedure code (CPT) selection complete Office Meds lidocaine HCl 2 % mucosal jelly in applicator Performing Provider: Robert Shah MD Performing Location[facility] Administered by: Christie Steele RN on 08/27/24 11:37 Dose Route Admin Location Dispensed Lot Number Expiration Date [facility] Hydrodynamicist 20 mL intra-urethral 20 mL ciprofloxacin HCl 500 mg tablet Performing Provider: Robert Shah MD Performing Location: [facility] Administered by: Christie Steele RN on 08/27/24 11:37 Dose Route Admin Location Dispensed Lot Number Expiration Date [place] Hydrodynamicist 500 mg PO 1 tab Results AMB Urinalysis, Automated UA Leukoctes 0 Hitesh/uL Last Edit by CALLIE Morales on 08/27/24 11:34 UA Nitrite Negative Last Edit by CALLIE Morales on 08/27/24 11:34 UA Urobilinogen 0.2 mg/dL Last Edit by CALLIE Morales on 08/27/24 11:3 4 UA Protein 15 mg/dL Last Edit by CALLIE Morales on 08/27/24 11:34 UA pH 5.5 Last Edit by CALLIE Morales on 08/27/24 11:34 UA Blood 0 Grgeorio/uL Last Edit by KASSI MoralesA on 08/27/24 11:34 UA Specific [place] 1.030 Last Edit by Selena Pacheco RMA on 08/27/24 11: 34 UA Ketone Negative Last Edit by Selena Pacheco RMA on 08/27/24 11:34 UA Bilirubin 0 mg/dL Last Edit by Selena Pacheco RMA on 08/27/24 11:34 UA Glucose 0 mg/dL Last Edit by KASSI MoralesA on 08/27/24 11:34 Results Reviewed Results Reviewed: Laboratory Last Values Urine pH (Auto) 5.5 08/27/24 11:29 Specific [place] (Auto) 1.030 08/27/24 11:29 Urine Protein (Auto) 15 mg/dL 08/27/24 11:29 Glucose (UA)(Auto) 0 mg/dL 08/27/24 11:29 Urine Ketones (Auto) Negative 08/27/24 11:29 Urine Blood (Auto) 0 Gregorio/uL 08/27/24 11:29 Urine Nitrite (Auto) Negative 08/27/24 11:29 Urine Bilirubin (Auto) 0 mg/dL 08/27/24 11:29 Urine Urobilinogen (Auto) 0.2 mg/dL 08/27/24 11:29 Leukocyte Esterase (Auto) 0 Hitesh/uL 08/27/24 11:29 Collected: 07/27/24 [facility] Received: 07/28/24 Diagnosis Urine: Negative for high-grade urothelial carcinoma. See comment. COMMENT: Paucicellular specimen consisting of few degenerated single urothelial cells, red blood cells and degenerated chronic inflammatory cells. Clinical History Gross hematuria Material Received Urine Gross Description Received is 35 cc of cloudy yellow fluid from which a ThinPrep slide is prepared. Date of Service: 07/21/24 CT ABDOMEN AND PELVIS WITH CONTRAST CLINICAL INFORMATION: Hematuria. COMPARISON: None available. TECHNIQUE: Multidetector volumetric images were obtained from the superior aspect of the liver through the pubic symphysis following administration 85 mL of Omnipaque 350 intravenous contrast. Sagittal and coronal reformatted images were obtained on the technologist's workstation. Oral contrast: No This CT examination was performed using dose optimization techniques as appropriate, variously including the following: *Automated exposure control *Adjustment of mA and/or kV according to patient size (this includes techniques or standardized protocols for targeted exams where dose is matched to indication/reason for exam; i.e. extremities or head) *Use of iterative reconstruction technique DLP: 609 mGy-cm FINDINGS: LUNG BASES: The visualized lung bases are unremarkable. LIVER, GALLBLADDER, AND BILIARY TREE: The liver is normal in size, shape, and diffusely hypoattenuated. No focal hepatic lesion or biliary ductal dilatation is present. The gallbladder is unremarkable with no evidence of radiopaque gallstones, gallbladder wall thickening, or obvious pericholecystic inflammatory changes. PANCREAS: Unremarkable. SPLEEN: Unremarkable. ADRENAL GLANDS: Unremarkable. KIDNEYS AND URETERS: The kidneys are normal in size, shape, and attenuation. There is normal cortical thickness. Excluded urinary contrast opacifies bilateral kidney pelvis and proximal ureters with no hydroureteronephrosis. Radiopaque calculi cannot be excluded as this segment contrast opacifying the kidney pelvises. Obviously no hydronephrosis seen. BLADDER: Unremarkable. GASTROINTESTINAL TRACT: There is scattered stool and gas seen throughout the colon without distention. The small bowel loops are normal caliber. Appendix is normal caliber. No free air or free fluid seen. ABDOMINAL WALL: No significant hernia is appreciated. LYMPH NODES: Normal. VASCULAR: Unremarkable. PELVIC VISCERA: The prostate gland is normal size. No abnormal pelvic lymph nodes or inguinal hernia seen. OSSEOUS STRUCTURES: No aggressive lytic or sclerotic process seen. There is mild degenerative disc changes with posterior spondylosis L5-S1 disc level. IMPRESSION: Limited exam due to excreted IV contrast opacifying both kidney pelvis and proximal ureters. A small radiopaque calculi cannot be excluded. However there is no hydroureteronephrosis seen. The bladder is unremarkable. Assessment & Plan Assessment & Plan (1) Screening PSA (prostate specific antigen): Code(s): Z12.5 - Encounter for screening for malignant neoplasm of prostate Category: Medical (2) Gross hematuria: Code(s): R31.0 - Gross hematuria Category: Medical Plan fu in 6months, renal US Orders: Orders AMB Cystoscopy 08/27/24 R31.0 - Gross hematuria AMB Urinalysis Automated 08/27/24 Z13.9 - Encounter for screening, unspecified Patient Instructions: The patient had an opportunity to ask questions regarding treatment plan. The patient expressed understanding and agreement with the above treatment plan. The patient is aware they should contact our office by phone for worsening of their current condition or the appearance of new symptoms. Compliance is encouraged with any medications and followup testing that is ordered. It is a privilege to be allowed the opportunity to participate in the urologic care of your patient. If you have any questions or concerns regarding treatment for the above conditions please do not hesitate to contact me. The office telephone contact is [phone]. This note is constructed in part using voice recognition software. While every effort has been made to ensure accuracy wine steward errors may have been included. Yours sincerely, Robert Shah MD Coding Level of Care Code Procedure Only Diagnoses Screening PSA (prostate specific antigen) Z12.5 Gross hematuria R31.0 CPT Codes Cystoscopy - CPT: 35303-Wxicenhhrt ([id number])
--- OUTSIDE RECORDS SUMMARY | 2024-08-27 11:07 | XMS_ITS | Clinical Summary ---
Author Organization [address] [place] [address] [place] [phone] Phone Care Team Providers Care Rubber Compounder Supervisor Name Role Phone Kacey Kinsey MD Primary Care Provider [phone] Allergies No known active allergies Medications Medication Sig Dispensed Refills Start Date End Date Status cyclobenzaprine (FLEXERIL) 5 mg tablet TAKE 1 TABLET BY MOUTH AT BEDTIME NEEDED FOR MUSCLE SPASMS FOR UP TO 30 DAYS. 30 tablet 05/25/2024 Active levothyroxine (SYNTHROID, LEVOTHROID) 100 mcg tablet TAKE 1 TABLET BY MOUTH EVERY DAY Active ibuprofen (ADVIL,MOTRIN) 600 mg tablet TAKE 1 TABLET BY MOUTH EVERY 6 HOURS NEEDED FOR PAIN Active FREESTYLE LANCETS [facility] Use to check blood glucose daily as directed 03/11/2020 Active UNABLE TO FIND CPAP Historical (HISTORICAL CPAP) Patient sig: Inhale into the lungs. apria-pressure 6-16 Active flash glucose sensor (FREESTYLE DRISS 2 SENSOR [facility] APPLY EVERY 14 DAYS. 02/05/2024 Active fluticasone propionate (FLONASE) 50 mcg/actuation nasal spray Administer 1 spray into each nostril 1 (one) time each day. Shake gently. Before first use, prime pump. After use, clean tip and replace cap. 16 g 1 06/30/2024 Active semaglutide (OZEMPIC) 0.25 mg or 0.5 mg (2 mg/3 mL) injection pen Inject 0.25-0.5 mg under the skin every 7 (seven) days. 1 Pen 1 06/30/2024 Active Additional Information Patient not taking.Reported on 07/10/2024 metFORMIN (GLUCOPHAGE) 1,000 mg tablet Take 1 tablet (1,000 mg total) by mouth 2 (two) times a day with meals. 180 tablet 1 06/30/2024 Active lisinopriL (PRINIVIL,ZESTRIL ) 5 mg tablet Take 1 tablet (5 mg total) by mouth 1 (one) time each day. 30 each 2 06/30/2024 12/27/2024 Active FreeStyle Test test strip Check sugars once daily E11.9 100 each 5 07/10/2024 Active blood-glucose sensor (FreeStyle Driss 3 Sensor) device Box = Kit = EA, use one sensor every 15 days. 2 each 3 07/10/2024 Active Active Problems Problem Noted Date Diagnosed Date Type 2 diabetes mellitus wit h hyperglycemia, without long-term current use of insulin 07/10/2024 Type II diabetes mellitus with renal manifestati ons 10/29/2022 Ventricular premature beats 10/29/2022 Overview (06/05/2024): Ventricular premature beats Assessment & Plan (06/12/2024 2:13 PM EST): Update echocardiogram next year. No PVCs heard on exam or seen on EKG today. 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 I had a long discussion with him and his about this which they seemed understand. I will plan on sending him to a fur vault attendant for possible treatment of this and I will also make his watershed tender aware of this new diagnosis. He can follow-up with me on an as-needed basis moving forward. With regard to the nodule we will plan on doing a 6-month follow-up CT scan of the chest and a visit in this office after that. Assessment & Plan (06/12/2024 2:13 PM EST): No evidence of cardiac sarcoid either by symptomatology, exam, or ECG. Pulmonary nodule 07/27/2021 Overview (06/05/2024): Last Assessment & Plan: Mr. Toth is a 47 yr. male, non-smoker never smoker, with some exposure to asbestos who had been followed for an aortic root aneurysm which she is followed with cardiology for. Given this, the patient was taken for endobronchial ultrasound in August 2021 that showed nonnecrotizing granulomas consistent with sarcoidosis in the right paratracheal, left paratracheal, and subcarinal lymph nodes and is followed by saw Dr. Carrillo and was deemed to have stage I sarcoidosis with good prognosis. His most recent chest CT surveillance scan which was performed in February 2024 and shows Which shows a stable 3 mm right lower lobe fissural nodular. Punctate calcified granuloma at the right lung base which also is unchanged. 2 mm left lower lobe nodule which remains stable with no new or worsening pulmonary nodules or mediastinal lymphadenopathy. .He does have an appointment coming up with Dr. Carrillo who follows him for his stage I sarcoidosis and the option was given to the patient moving forward since he already is being seen by pulmonary and Dr. Carrillo who is an expert in sarcoidosis to continue to follow with our department or follow-up with both. The decision was made that he would continue to follow with his fur vault attendant for any chest CT scans that his department deems appropriate in the future as patient is a nonnever smoker. Mediastinal lymphadenopathy 07/27/2021 Overview (06/05/2024): Last Assessment & Plan: Endobronchial ultrasound possible CME as part of staging work-up for potential lung cancer as discussed above. Aortic root dilatation 07/08/2021 Overview (06/12/2024): - CT scan of the chest from 03/05/2024-Dr Dawson got a measurement of 4.5 x 4.3 cm of the aortic root, there is no evidence of ascending aortic aneurysm or any other areas of aneurysmal dilatation of the aorta -Most recent echocardiogram from 05/12/2020 showed normal biventricular size and systolic function, normal left ventricular regional wall motion with an ejection fraction of 55 to 60%, normal left ventricular diastolic function, normal pulmonary artery systolic pressure, no hemodynamically significant valve disease, dilated aortic root at 4.5 cm Assessment & Plan (06/12/2024 2:13 PM EST): Per his , he is no longer needing regular CT scans as his pulmonary nodules have been very stable. As such, we will proceed with surveillance imaging with echocardiogram alone. We will plan to do a surveillance echo next year. Thereafter, if measurements are still stable, we will plan to do surveillance echoes every 2 to 3 years-using echo to minimize radiation. He does not do any excessive or heavy lifting. Orders: Transthoracic echocardiogram (TTE) complete with PRN contrast, bubble, strain, and 3D order panel; Future Hyperlipidemia 08/08/2020 Assessment & Plan (06/12/2024 2:13 PM EST): Most recent lipid panel from 2021 actually showed remarkably good control of lipids however given diabetes diagnosis, I would want to make sure this is updated as we will need to have stringent targets for lipid numbers in the setting of diabetes. I have ordered a fasting lipid profile to be checked with his next set of labs for his PCP. Ideally this should be fasting. 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 CPAP@ 6-16/Average 9.2/Max 10.1. 87% compliant with using the machine for >4 hours/day. Average use is 5.5 hours a night with AHI 1.3. Encounters Date Type Department Care Team Description 08/03/[address] [phone] Kacey Kinsey MD Referral (Urology) 07/23/2024 11:30 AM EST Office Visit Adult [address] [phone] Kacey Kinsey MD Gross hematuria (Primary Dx); Type II diabetes mellitus with neurological manifestations (CMS/HCC); Microalbuminuria; Urinary tract infection with hematuria, site unspecified; Poorly controlled diabetes mellitus (CMS/HCC); Leukopenia, unspecified type; Other hyperlipidemia; Sarcoidosis of lung with sarcoidosis of lymph nodes (CMS/HCC); Aortic root dilatation (CMS/HCC); Hypothyroidism, unspecified type 07/21/[address] [phone] Kacey Kinsey MD provider callback 07/10/2024 4:00 PM EST Office Visit Endocrinology [address] [phone] Soni Ahn PA Type 2 diabetes mellitus with hyperglycemia, without long-term current use of insulin (CMS/HCC) (Primary Dx); 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 [address] [place] [phone] Nikhil Lu PA 06/12/2024 1:30 PM EST Office Visit [facility] - [facility] [address] [facility] [address] [place] [address] Viry Dawson MD Aortic root dilatation (CMS/HCC) (Primary Dx); Hyperlipidemia, unspecified hyperlipidemia type; Ventricular premature beats; Sarcoidosis of lung with sarcoidosis of lymph nodes (CMS/HCC) 05/28/2024 Telephone [facility] [address] [facility] [address] [place] [address] Viry Dawson MD Appointment from Last 3 Months Immunizations Name Administration Dates Next Due Tdap Tetanus diptheria acell ular pertussis (Boostrix; Adacel) 7yo and older 08/03/2008 Surgical History Surgery Date Site/Laterality Comments TONSILLECTOMY ADENOIDECTOMY, BILATERAL MYRINGOTOMY AND TUBES PROCEDURE: [place] TONSILLECTOMY & ADENOIDECTOMY <AGE 10 Medical History Medical History Date Comments Hypothyroid DX:Hypothyroid Uncontrolled type 2 diabetes mellitus DX:Uncontrolled type 2 diabetes mellitus Family History Medical History Relation Name Comments Other: ulcer dis Brother Diabetes Father Other: heart dis Father's side Pgf and un consuelo Asthma Mother Diabetes Mother Relation Name Status Comments Brother Father Father's side Mother Social History Tobacco Use Types Packs/Day Years Used Date Smoking Tobacco: Never Smokeless Tobacco: Never Tobacco Cessation:Counseling Given: Not Answered Alcohol Use Standard Drinks/Week Comments Yes 0 (1 standard drink = 0.6 oz pur e alcohol) Sex and Gender Information Value Date Recorded Sex Assigned at Not on file Gender Identity Not on file Sexual Orientation Not on file Job Start Date Occupation Industry Not on file Not on file Not on file Obstetrics History Last Filed Vital Signs Vital Sign Reading Time Taken Comments Blood Pressure 110/70 07/23/2024 11:20 AM EST Pulse 72 07/23/2024 11:20 AM EST Temperature 36.2 ??C (97.1 ??F) 07/23/2024 11:[address] Respiratory Rate 20 07/23/2024 11:20 AM EST Oxygen Saturation 96% 07/10/2024 4:08 PM EST Inhaled Oxygen Concentration - - Weight 88.9 kg (196 lb) 07/23/2024 11:20 AM EST Height 167.6 cm (5' 6 ) 07/23/2024 11:20 AM EST Body Mass Index 31.64 07/23/2024 11:20 AM EST Plan of Treatment Upcoming Encounters Date Type Department Care Team (Late st Contact Info) Description 01/20/2025 4:00 PM EDT Office Visit Adult Medicine [facility] [address] [place] [phone] Kacey Kinsey MD [address] [place] [address] 03/29/2025 8:15 AM EDT Office Visit Pulmonolgy - [place] [address] [facility] [address] [place] [phone] Nikolas Carrillo MD [address] [facility] [address] [place] [address] 06/11/2025 1:00 PM EST Ancillary Procedure [facility] - [facility] [address] [facility] [address] [place] [address] Health Maintenance Due Date Last Done Comments Pneumococcal Vaccine: Pediatrics (0 to 5 Years) and At-Risk Patients (6 to 64 Years) (1 of 2 - PCV) 09/29/1979 Diabetes: Annual Foot Exam 09/29/1983 Diabetes: Annual Retina Eye Exam 09/29/1983 Hepatitis B Vaccines (1 of 3 - 19+ 3-dose series) 1992 Zoster Vaccines (1 of 2) 1992 DTaP,Tdap,and Td Vaccines (2 - Td or Tdap) 08/03/2018 08/03/2008 Colorectal Cancer Screening: Colonoscopy 06/30/2022 Depression Screening 06/30/2022 HIV Screening 06/30/2022 Social Influencers of Health Screening 06/30/2022 COVID-19 Vaccine (4 - 2023-2 5 season) 2024 07/28/2021, 01/20/2021, 12/30/2020 Influenza Vaccine (#1) 2024 Diabetes: Annual GFR (Glomerular Filtration Rate) 08/05/2024 08/05/2023 Hypertension/CHF/CAD Annual BMP Blood Test 08/05/2024 08/05/2023 Diabetes: Blood Sugar Contro l Test (HGBA1C) 12/17/2024 06/19/2024, 08/05/2023 Diabetes: Annual Urine Albumin-Creatinine Ratio (uACR) 06/19/2025 06/19/2024, 09/03/2022 Cholesterol Screening (Lipid Panel) 06/19/2029 06/19/2024, 02/02/2022 Hepatitis C Screening Completed 07/10/2021 HIB Vaccines Aged Out No longer eligi ble based on patient's age to complete this topic HPV Vaccines Aged Out No longer eligi ble based on patient's age to complete this topic Hepatitis A Vaccines Aged Out No long er eligible based on patient's age to complete this topic IPV Vaccines Aged Out No longer eligi ble based on patient's age to complete this topic MMR Vaccines Aged Out No longer eligi ble based on patient's age to complete this topic Meningococcal ACWY Vaccine Aged Out N o longer eligible based on patient's age to complete this topic RSV Immunization Patients Under 20 months Aged Out No longer eligible b ased on patient's age to complete this topic Varicella Vaccines Aged Out No longer eligible based on patient's age to complete this topic Procedures Procedure Name Priority Date/Time Associated Diagnosis Comments EXTERNAL CT REPORT 07/21/2024 EXTERNAL XRAY REPORT 07/21/2024 MICROALBUMIN CREATININE URINE RATIO Routine 06/19/2024 10:02 AM EST Type II diabetes mellitus with neurological manifestations (CMS/HCC) Hyperlipidemia LIPID PANEL WITH REFLEX TO DIRECT LDL Routine 06/19/2024 10:02 AM EST Type II diabetes mellitus with neurological manifestations (CMS/HCC) Hyperlipidemia HEMOGLOBIN A1C Routine 06/19/2024 10:02 AM EST Type II diabetes mellitus with neurological manifestations (CMS/HCC) ECG 12-LEAD Routine 06/12/2024 1:37 PM EST Hyperlipidemia, unspecified hyperlipidemia type ANNUAL BMP BLOOD TEST Routine 08/05/2023 HEPATITIS C SCREENING Routine 07/10/2021 from Last 3 Months or Most Recently Relevant to Health Maintenance Results * External Xray Report (07/21/2024) Anatomical Region Laterality Modality Radiographic Bertha ging Provider [facility] XR PROCEDURE S * External CT Report (07/21/2024) Anatomical Region Laterality Modality Computed Tomogra phy Provider [facility] PROCEDURE S * (ABNORMAL) Lipid panel with reflex to direct LDL (06/19/2024 10:02 AM EST) Cholesterol 224(H) 0 - 200 mg/dL LAB CHEMISTRY METHOD 06/19/2024 12:56 PM [facility] Triglycerides 278(H) 0 - 150 mg/dL LAB CHEMISTRY METHOD 06/19/2024 12:56 PM [facility] HDL 54 >=40 mg/dL LAB CHEMISTRY METHOD 06/19/2024 12:56 PM [facility] LDL Calculated 114(H) 0 - 100 mg/dL LAB CHEMISTRY METHOD 06/19/2024 12:56 PM [facility] VLDL Cholesterol Gabriel 55.6 mg/dL LAB CHEMISTRY METHOD 06/19/2024 12:56 PM [facility] Non HDL Chol. (LDL+VLDL) 170(H) <145 mg/dL LAB CHEMISTRY METHOD 06/19/2024 12:56 PM [facility] Chol/HDL Ratio 4.1 0.0 - 4.4 LAB CHEMISTRY METHOD 06/19/2024 12:56 PM [facility] Blood Venous blood specimen / Unknown Venipuncture / Unknown 06/19/2024 10:02 AM EST 06/19/2024 10:02 AM EST Nikhil ANGEL LAB BLOOD ORDERA BLES [facility] [address] [place] [address], * Microalbumin creatinine urine ratio (06/19/2024 10:02 AM EST) Creatinine, Urine 56.0 mg/dL LAB CHEMISTRY METHOD 06/19/2024 1:14 PM EST [facility] Microalb, Ur 8.8 0.0 - 29.0 mg/L LAB CHEMISTRY METHOD 06/19/2024 1:14 PM EST [facility] Microalb/Creat Ratio 16 <30 mg/g creat LAB CHEMISTRY METHOD 06/19/2024 1:14 PM EST [facility] Urine Urine specimen obtained by clean catch procedure / Unknown Non-blood Collection / Unknown 06/19/2024 10:02 AM EST 06/19/2024 10:02 AM EST Nikhil ANGEL LAB URINE ORDERA BLES Performing Organization Address [facility]/ZIP Co de Phone Number [facility] [address] [place] [address], [place] [phone] * (ABNORMAL) Hemoglobin A1c (06/19/2024 10:02 AM EST) Hemoglobin A1C 9.0(H) <6.5 % LAB CHEMISTRY METHOD 06/19/2024 1:45 PM EST [facility] Mean Bld Glu Estim. 212 mg/dL LAB CHEMISTRY METHOD 06/19/2024 1:45 PM EST [facility] Blood Venous blood specimen / Unknown Venipuncture / Unknown 06/19/2024 10:02 AM EST 06/19/2024 10:02 AM EST Soni ANGEL LAB BLOOD ORDERABLES [facility] [address] [place] [address], * ECG 12 lead (06/12/2024 1:37 PM EST) Pathologist [facility] Ventricular Rate ECG 89 BPM GEMUSE Atrial Rate 89 BPM GEMUSE P-R Interval 168 ms GEMUSE QRS Duration 96 ms GEMUSE Q-T Interval 364 ms GEMUSE QTc 442 ms GEMUSE P Wave [place] 50 degrees GEMUSE R [place] -21 degrees GEMUSE T [place] -11 degrees GEMUSE ECG Interpretation Normal sinus rhythm Nonspecific T wave abnormality Abnormal ECG When compared with ECG of 12-SEP-1997 21:39, Nonspecific T wave abnormality now evident in Anterolateral leads Confirmed by VIRY DAWSON ([id number]) on 06/12/2024 3:18:27 PM GEMUSE 06/12/2024 1:37 PM EST 06/12/2024 3:18 PM EST Viry Dawson MD ECG ORDERABLES Performing Organization Address City/[facility]/ZIP Co de Phone Number GEMUSE * Annual BMP Blood Test (08/05/2023) Pathologist [facility] Annual BMP Blood Test abstracted Historical Provider MD FIDENCIO Brush * Hepatitis C Screening (07/10/2021) [facility] Hepatitis C Screening Abstracted Historical Provider MD FIDENCIO Brush from Last 3 Months or Most Recently Relevant to Health Maintenance Care Teams Rubber Compounder Supervisor Relationship Specialty Start Date End Date Kacey Kinsey MD [address] [place] [address] PCP - General Internal Medicine 06/08/20
--- OUTSIDE RECORDS SUMMARY | 2024-08-27 11:08 | XMS_ITS | Encounter Summary ---
Author Organization [facility] Address [address] [place] [address] Care Team Providers Care Sinter Feeder Name Role Phone Kacey Kinsey MD Primary Care Provider [phone] Reason for Referral * Consultation (Routine) - Authorized Specialty Diagnoses / Procedures Referred By Shila cosby Referred To Contact Urology Diagnoses Gross hematuria Kacey Kinsey MD [address] [place] [phone] Stacey Li MD [address] [place] [phone] Referral ID Status Reason Start Date Expiration Date Visits Requested Visits Authorized [id number] Authorized Specialty Services Required 07/27/2024 07/27/2025 10 10 Reason for Visit * Reason Onset Date Comments Referral 08/03/2024 Urology Encounter Details Date Type Department Care Team ([facility] st Contact Info) Description 08/03/2024 Telephone Adult Medicine [address] [phone] Kacey Kinsey MD [address] [place] [phone] Referral (Urology) Social History Tobacco Use Types Packs/Day Years Used Date Smoking Tobacco: Never Smokeless Tobacco: Never Alcohol Use Standard Drinks/Week Comments Yes 0 (1 standard drink = 0.6 oz pur e alcohol) Sex and Gender Information Value Date Recorded Sex Assigned at Not on file Gender Identity Not on file Sexual Orientation Not on file Job Start Date Occupation Industry Not on file Not on file Not on file documented as of this encounter Progress Notes * Lucretia Caceres - 08/03/2024 10:38 AM EST [facility] calling requesting a backdated insurance referral R31.0 10 visits Appointment 07/27/24 Please pend the order for the provider to review and sign so we can process the insurance authorization documented in this encounter Plan of Treatment Upcoming Encounters Date Type Department Care Team (Late st Contact Info) Description 01/20/2025 4:00 PM EDT Office Visit Adult Medicine [facility] [address] [place] [address] Kacey Kinsey MD [address] [place] [address] 03/29/2025 8:15 AM EDT Office Visit Pulmonolgy - [place] [address] [phone] Nikolas Carrillo MD 175 [facility] [address] [place] [address] 06/11/2025 1:00 PM EST Ancillary Procedure [facility] - [facility] 101 300 [facility] [address] [place] [phone] Scheduled Referrals Name Type Priority Associated Diagnoses Order Schedule Ambulatory referral to Urology Outpatient Referral Routine Gross hematuria 1 Occurrences starting 08/05/2024 until 08/04/2025 documented as of this encounter Visit Diagnoses Diagnosis Gross hematuria- Primary documented in this encounter Care Teams Sinter Feeder Relationship Specialty Start Date End Date Kacey Kinsey MD [address] [place] [phone] PCP - General Internal Medicine 06/08/20 documented as of this encounter
--- OUTSIDE RECORDS SUMMARY | 2024-08-27 11:08 | XMS_ITS | Encounter Summary ---
Author Organization [facility] Address [address] [place] [address] Care Team Providers Care Laborer Hide House Name Role Phone Kacey Kinsey MD Primary Care Provider [phone] Reason for Visit * Reason Onset Date Comments prior authorization 07/08/2024 Encounter Details Date Type Department Care Team (Late st Contact Info) Description 07/08/2024 [place]phone [place] [facility] [place] [address] [place] [phone] Kacey Kinsey MD [address] [place] [address] prior authorization Social History Tobacco Use Types Packs/Day Years [...] as of this encounter Progress Notes * Penny Hall MA - 08/03/2024 9:19 AM EST Prior authorization for the ozempic was approved Approved from 07/31/24 until 07/30/25 Authorization case approval number #[id number] Approval faxed to [facility] [phone] * Penny Hall MA - 07/31/2024 2:14 PM EST Previuos prior auth states this as well as the one I just did today with keycode from Pablo. [facility] does not manage PA for this patient. Please contact the number on the back of the members card for further assistance Information from [employer] in pt services from the pt BCBS ID# [id number], Express Rx ID # [id number] & rx member , pharmacy # [phone], Pt does not have express scripts. His scripts need to be done on rx benefits. Prior authorization completed today for the ozempic Dx code type 2 diabetes mellitus * Zenia Campbell - 07/26/2024 11:28 AM EST COVER MY MEDS YES MARTINO CODE [id number] OZEMPIC .25 or.5 MG Dose 2 MG \3ML Pen Injectors * Penny Hall MA - 07/13/2024 2:57 PM EST Unable to locate pharmacy ins information. Each time cmm comes up with caremark which is incorrect. Called pts pharmacy and was given BIN [id number] [facility] A[facility] L63ACT ID # [id number] Prior authorization completed today on cmm for the ozmepic Dx code E11.65 type 2 diabetes mellitus with hyperglycemia, without exterminator helper current use of insulin * Silvana Pollard MA - 07/08/2024 2:32 PM EST * Thierry Blankenship - 07/08/2024 2:19 PM EST Prior Authorization for Medication-do not complete and send this encounter unless you have the fax from the pharmacy. Is this a Cover My Meds request: Brent of Medication ozempic Dose of Medication 0.25 mg or 0.5 mg What is the RX # from the faxed refill? No How does patient take this med? Inject 0.25-0.5 mg under the skin every 7 (seven) days. What Pharmacy did the fax come from: [facility] fax #: no documented in this encounter Plan of Treatment Upcoming Encounters Date Type Department Care Team (Late st Contact Info) Description 01/20/2025 4:00 PM EDT [place] [facility] [place] [address] [place] [address] Kacey Kinsey MD [address] [place], [place] 03/29/2025 8:15 AM EDT Office Visit Pulmonolgy - [place] [address] [phone] Nikolas Carrillo MD [address] [address] 06/11/2025 1:00 PM EST Ancillary Procedure [facility] - [facility] 101 300 [facility] 101 [place] [phone] documented as of this encounter Visit Diagnoses Not on filedocumented in this encounter Care Teams Laborer Hide House Relationship Specialty Start Date End Date Kacey Kinsey MD [address] [place] [address] PCP - General Internal Medicine 06/08/20 documented as of this encounter
== END 2024-08-27 11:59 | disposition home or self-care (01) ==
LOC: HO.HUSH 11:03
PROVIDERS: PCP Internal Medicine; Visit Provider Urology
DX: R31.0 Gross hematuria (principal); Z13.9 Encounter for screening, unspecified
CPT/HCPCS: 52000

== ENCOUNTER → 2024-08-27 11:03 | Outpatient (BNVA) | payer BC, SELFPAY | PROVIDERS: PCP Internal Medicine; Visit Provider Urology | DX: R31.0 Gross hematuria (principal); Z12.5 Encounter for screening for malignant neoplasm of prostate | CPT/HCPCS: 52000; 81003 ==

== ENCOUNTER 2025-04-13 16:13 | Outpatient (REF) | payer BC, SELFPAY ==
--- NOTE | ~2025-04-13 | US_ITS ---
EXAMINATION: US RETROPERITONEAL LIMITED (RENAL ONLY) CLINICAL INFORMATION: Gross hematuria.. COMPARISON: Correlated to CT dated July 21, 2024. TECHNIQUE: Real-time ultrasound kidneys using grayscale and color technique. FINDINGS: RIGHT KIDNEY: 12 x 6 x 5 cm (SAG x AP x TRV). Volume: 199 cc. Echotexture is normal. Renal cortical thickness is normal. No hydronephrosis. No solid or cystic lesion. LEFT KIDNEY: 12 x 6 x 5 cm (SAG x AP x TRV). Volume: 187 cc. Echotexture is normal. Renal cortical thickness is normal. No hydronephrosis. No gross solid or cystic lesion. US/US renal BI IMPRESSION: Normal exam.. Electronically signed by: Roland Martínez MD 04/13/2025 08:46 PM EDT
--- OUTSIDE RECORDS SUMMARY | 2025-04-13 18:39 | XMS_ITS | Encounter Summary ---
Author Organization [facility] Address [address] [place] [address] Care Team Providers Care Customs House Broker Name Role Phone Kacey Kinsey MD Primary Care Provider [phone] Reason for Visit * Reason Onset Date Comments Groin Pain 03/15/2025 Encounter Details Date Type Department Care Team (Late st Contact Info) Description 03/15/2025 Telephone Adult Medicine [facility] [address] [place] [address] Kacey Kinsey MD [address] [place], [place] [phone] Social History Tobacco Use Types Packs/Day Years Used Date Smoking Tobacco: Never Smokeless Tobacco: Never Alcohol Use Standard Drinks/Week Comments Yes 0 (1 standard drink = 0.6 oz pur e alcohol) Sex and Gender Information Value Date Recorded Sex Assigned at Not on file Legal Sex Male 12:52 AM EST Gender Identity Not on file Sexual Orientation Not on file documented as of this encounter Progress Notes * Lucia Antony RN - 03/16/2025 11:07 AM EDT Pt. States this pain/discomfort started 2-3 weeks ago . The pain location is rt. Groin area . No lumps or bumps noted, it did not follow lifting heavy item that pt. Can recall. It feels like a stretch feeling pt. Had similar feeling when he had hematuria and had to see a urologist but denies any blood and no c/o urinary changes. No fever or chills, no other ad. Pain other then groin pain , no n/v no diarrhea, no testicular pain or swelling , no back pain other then his usual back pain nothingadditional or worsening , no weakness , cp or sob. Pt. Presently at work . Apt. Made for today * Winnie Hansen MA - 03/16/2025 10:41 AM EDT is calling back states continues to Groin pain.Please Advise. * Camrella Mark - 03/15/2025 9:21 AM EDT Patient call requires triage: Symptoms patient is presenting: patient is reporting groin pain. Initially thought it was a muscle strain, is calling but patient will be able to answer a call back. How long has patient had these symptoms?: 2-3 weeks. For ALL patients calling to schedule any appointment (routine, sick visit, follow up, consult, etc.) in the outpatient setting please ask the following questions: Do you have fever of higher than 101, sore throat with difficulty swallowing or severe shortness ofbreath? no If YES to any of these above symptoms, send a message to triage and do not book. Red dot. If no, an audio or video visit should be booked. Have you had close contact with someone with Coronavirus in the last 14 days? no Have you traveled abroad? no Have you traveled recently to another state outside of [place], [place], [place], [place], [place], [place], [place]? no o If yes, did you quarantine for 14 days or have a negative covid test? no If yes to any of the above, patient is not to be scheduled in office until after 14 day quarantine or negative covid test. If pain or injury related was it due to an accident at work or from a motor vehicle accident? If yes, date of accident/Injury: No If yes, gather 3rd constitution party insurance information Third Democrat Information: not applicable PCP: Kacey Kinsey MD Payor: KORY Iraheta [place] / Plan: [facility] HMO / Product Type: *No Product type* / documented in this encounter Plan of Treatment Upcoming Encounters Date Type Department Care Team (Late st Contact Info) Description 05/24/2025 3:15 PM EST Office Visit Adult Medicine [facility] [address] [place], [place] [phone] Kacey Kinsey MD [address] [place] [address] 06/07/2025 8:00 AM EST Appointment [facility] [address] [place] [phone] Stef Rios DO 175 [facility] [address] [place] [address] 06/11/2025 1:00 PM EST Ancillary Procedure [facility] - [address] [facility] [place] [address] [place] [address] 06/14/2025 4:40 PM EST Office Visit Endocrinology [address] [phone] Soni Ahn PA [address] [place], [place] documented as of this encounter Visit Diagnoses Not on filedocumented in this encounter Care Teams Customs House Broker Relationship Specialty Start Date End Date Kacey Kinsey MD [address] [place] [address] PCP - General Internal Medicine 06/08/20 documented as of this encounter
--- OUTSIDE RECORDS SUMMARY | 2025-04-13 18:39 | XMS_ITS | Clinical Summary ---
Author Organization [facility] Address [address] [id number] Phone Care Team Providers Care Optimization Manager Name Role Phone Kacey Kinsey MD Primary Care Provider [phone] Allergies No known active allergies Medications dulaglutide (TRULICITY) 0.75 mg/0.5 mL subcutaneous injection Inject 0.75 mg under the skin every 7 days. Active levothyroxine (SYNTHROID, LEVOTHROID) 50 MCG tablet Take 50 mcg by mouth every morning. Active metFORMIN (FORTAMET) 1000 MG (OSM) 24 hr tablet Take 1,000 mg by mouth daily with dinner. Active Active Problems Problem Noted Date Diagnosed Date Mass of soft tissue of face 06/17/2024 Changing skin lesion 06/17/2024 Family History Relation Status Comments Father Alive Mother Alive Social History Tobacco Use Types Packs/Day Years Used Date Smoking Tobacco: Never Tobacco Cessation:Counseling Given: Not Answered Alcohol Use Standard Drinks/Week Comments Yes 1 (1 standard drink = 0.6 oz pur e alcohol) Education Answer Date Recorded Are you interested in more education? Not on joseline e 01/24/2024 Are you concerned about learning? Not on file 01/24/2024 No 01/24/2024 No 01/24/2024 Digital Access Answer Date Recorded No 01/24/2024 No 01/24/2024 Reliable internet access at home? Not on file 01/24/2024 Device with a working camera? Not on file Sex and Gender Information Value Date Recorded Sex Assigned at Not on file Legal Sex Male 9:16 AM EDT Gender Identity Not on file Sexual Orientation Not on file Last Filed Vital Signs Vital Sign Reading Time Taken Comments Blood Pressure 130/91 02/20/2024 3:31 PM EDT Pulse 96 02/20/2024 3:31 PM EDT Temperature - - Respiratory Rate - - Oxygen Saturation - - Inhaled Oxygen Concentration - - Weight 90.8 kg (200 lb 3.2 oz) 02/20/2024 3:31 P M EDT Height 166.4 cm (5' 5.5 ) 02/20/2024 3:31 PM EDT Body Mass Index 32.81 02/20/2024 3:31 PM EDT Plan of Treatment Health Maintenance Due Date Last Done Comments Adult Td,Tdap Booster 1973 CREATININE LEVEL 1973 TSH LEVEL 1973 DEPRESSION SCREENING 1985 HEPATITIS C SCREENING 09/29/1991 HIV ONE-TIME SCREENING (18-6 5 YEARS) 09/29/1991 SMOKING STATUS SCREENING (On ce After 26 Yrs) 09/29/1999 SCREENING FOR DIABETES 2008 COLOGUARD 2018 COLONOSCOPY 2018 COLORECTAL CANCER SCREENING 2018 FIT TEST 2018 FOBT 2018 SIGMOIDOSCOPY 2018 VIRTUAL COLONOSCOPY 2018 PNEUMOCOCCAL VACCINES (50+ years) (1 of 1 - PCV) 09/29/2023 ZOSTER VACCINES (1 of 2) 09/29/2023 INFLUENZA VACCINE (#1) 2025 COVID-19 VACCINE (1 - 2023-2 5 season) 2025 LIPID PANEL 06/19/2029 06/19/2024, 02/02/2022 HEPATITIS A VACCINES Aged Out No long er eligible based on patient's age to complete this topic HIB VACCINES Aged Out No longer eligi ble based on patient's age to complete this topic MENINGOCOCCAL VACCINES (ACWY) Aged Out No longer eligible based on patient's age to complete this topic MENINGOCOCCAL VACCINES (B) Aged Out N o longer eligible based on patient's age to complete this topic Medical Devices Not on file Insurance [facility] Care Teams Optimization Manager Relationship Specialty Start Date End Date Kacey Kinsey MD [address] [place] [id number] PCP - General Internal Medicine 01/30/24 Additional Source Comments The information contained in this document represents components of the legal health record. It is not the complete legal health record.[facility]
--- OUTSIDE RECORDS SUMMARY | 2025-04-13 18:39 | XMS_ITS | Encounter Summary ---
Author Organization [facility] Address [address] [place] [address] Care Team Providers Care Business Ethics Professor Name Role Phone Kacey Kinsey MD Primary Care Provider Reason for Referral * Consultation (Routine) - Authorized Specialty Diagnoses / Procedures Referred By Contac t Referred To Contact Pulmonary Disease / Pulmonology Diagnoses Lung nodule Kacey Kinsey MD [address] [place] [address] Phone: tel: fax: Nikolas Carrillo MD [address] [place] [address] Phone: tel: fax: Referral ID Status Reason Start Date Expiration Date Visits Requested Visits Authorized [id number] Authorized Specialty Services Required 03/23/2025 03/23/2026 12 12 Reason for Visit * Reason Onset Date Comments Referral 03/18/2025 Encounter Details Date Type Department Care Team (Late st Contact Info) Description 03/18/2025 Telephone Adult Medicine [address] [phone] Kacey Kinsey MD [address] [place] [address] Social History Tobacco Use Types Packs/Day Years [...] on file documented as of this encounter Plan of Treatment Upcoming Encounters Date Type Department Care Team (Late st Contact Info) Description 05/24/2025 3:15 PM EST Office Visit [facility] [place] [address] [place], [place] [phone] Kacey Kinsey MD [address] [place] [address] 06/07/2025 8:00 AM EST Appointment [facility] [address] [place] [phone] Stef Rios DO [address] [facility] [address] [place] [address] 06/11/2025 1:00 PM EST Ancillary Procedure [facility] [address] [facility] [address] [place] [phone] 06/14/2025 4:40 PM EST Office Visit Endocrinology [address] [phone] Soni Ahn PA [address] [place] [address] Scheduled Referrals Name Type Priority Associated Diagnoses Order Schedule Ambulatory referral to Pulmonology Outpatient Referral Routine Lung nodule Expected: 04/22/2025, Expires: 03/18/2026 documented as of this encounter Visit Diagnoses Diagnosis Lung nodule- Primary Other diseases of lung, not elsewhere classified documented in this encounter Care Teams Business Ethics Professor Relationship Specialty Start Date End Date Kacey Kinsey MD [address] [place] [address] PCP - General Internal Medicine 06/08/20 documented as of this encounter
--- OUTSIDE RECORDS SUMMARY | 2025-04-13 18:39 | XMS_ITS ---
Author Name [facility] Organization Unknown Care Team Organization Name Specialty Phone Email Start Date End Da pearl [facility] Kinsey Primary Care 05/29/2022 03/09/2024
--- OUTSIDE RECORDS SUMMARY | 2025-04-13 18:39 | XMS_ITS | Clinical Summary ---
Author Organization [address] [place] [address] [place] [phone] Phone Care Team Providers Care Special Police Officer Name Role Phone Kacey Kinsey MD Primary Care Provider [phone] Allergies No known active allergies Medications FREESTYLE LANCETS MISC Use to check blood glucose daily as directed 03/11/20 20 Active UNABLE TO FIND CPAP Historical (HISTORICAL CPAP) Patient sig: Inhale into the lungs. apria-pressure 6-16 Active FreeStyle Test test strip Check sugars once daily E11.9 100 each 07/10/20 24 Active fluticasone propionate (FLONASE) 50 mcg/actuation nasal spray INSTILL 1 SPRAY INTO EACH NOSTRIL 1 TIME PER DAY. SHAKE GENTLY. AFTER USE, CLEAN TIP AND REPLACE CAP 32 mL 09/29/19 25 Active semaglutide (OZEMPIC) 1 mg/dose (4 mg/3 mL) injection pen Inject 1 mg under the skin every 7 (seven) days. 3 mL 01/22/20 25 Active blood-glucose sensor (Dexcom G7 Sensor) deviceIndications: Type 2 diabetes mellitus with stage 3 chronic kidney disease, without long-term current use of insulin, unspecified whether stage 3a or 3b CKD (CMS/HCC V24, CMS/HCC V28) Change sensor every 10 days. 3 each 01/22/20 25 Active ibuprofen (ADVIL,MOTRIN) 600 mg tablet Take 1 tablet (600 mg total) by mouth every 6 (six) hours if needed for mild pain or moderate pain. for pain 60 tablet 1 01/27/20 25 Active metFORMIN XR (GLUCOPHAGE-XR) 500 mg 24 hr tablet Take 2 tablets with breakfast and 2 tablets with dinner 120 each 01/29/20 25 Active levothyroxine (SYNTHROID, LEVOTHROID) 100 mcg tablet Take 1 tablet (100 mcg total) by mouth 1 (one) time each day. 90 tablet 1 03/16/20 25 Active celecoxib (CeleBREX) 100 mg capsule Take 1 capsule (100 mg total) by mouth 2 (two) times a day with meals. 28 each 03/16/20 25 Active cyclobenzaprine (FLEXERIL) 5 mg tablet Take 1 tablet (5 mg total) by mouth at bedtime as needed for muscle spasms. 30 tablet 03/16/20 25 025 Active levothyroxine (SYNTHROID, LEVOTHROID) 100 mcg tabletIndications: Other specified hypothyroidism TAKE 1 TABLET BY MOUTH EVERY DAY 90 tablet 1 09/01/19 025 Discontin ued(Reord er) metFORMIN XR (GLUCOPHAGE-XR) 500 mg 24 hr tablet Take 2 tablets (1,000 mg total) by mouth 2 (two) times a day. One tab in the morning one tab in the afternoon 270 each 01/27/20 025 Discontin ued(Formu jesus change) Active Problems Problem Noted Date Diagnosed Date Type 2 diabetes mellitus wit h hyperglycemia, without long-term current use of insulin ([facility] V24, [facility] V28) 07/10/2024 Type II diabetes mellitus wi th renal manifestations ([facility] V24, [facility] V28) 10/29/2022 Ventricular premature beats 10/29/2022 Overview (06/05/2024): Ventricular premature beats Assessment & Plan (06/12/2024 2:13 PM EST): Update echocardiogram next year. No PVCs heard on exam or seen on EKG today. 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 V24) 09/04/2021 Overview (06/05/2024): Last Assessment & Plan: 45-year-old male relatively asymptomatic with significant mediastinal lymphadenopathy now after endobronchial ultrasound showing nonnecrotizing granulomas carries the diagnosis of sarcoidosis. I had a long discussion with him and his about this which they seemed understand. I will plan on sending him to a conference translator for possible treatment of this and I will also make his office services clerk aware of this new diagnosis. He can [...] he would continue to follow with his conference translator for any chest CT scans that his department deems appropriate in the future as patient is a nonnever smoker. Mediastinal lymphadenopathy 07/27/2021 Overview (06/05/2024): Last Assessment & Plan: Endobronchial ultrasound possible CME as part of staging work-up for potential lung cancer as discussed above. Aortic root dilatation (CMS/HCC V24) 07/08/2021 Overview (06/12/2024): - CT scan of the chest from 03/05/2024-Dr Aguilar got a measurement of 4.5 x 4.3 [...] (BMI 30.0-34.9) 07/31/2017 Type II diabetes mellitus wi th neurological manifestations ([facility] V24, [facility] V28) 10/16/2016 RLS (restless legs syndrome) 01/06/2015 Elevated LFTs 08/27/2012 Overview (06/05/2024): 07/02 CTS (carpal tunnel syndrome) 06/12/2010 Overview (06/05/2024): [facility] SALVATORE (obstructive sleep apnea) 06/12/2010 Overview (06/05/2024): cx pulmo 08/14/2016 ResScan 07/11/2016 to 08/09/2016. CPAP@ 6-16/Average 9.2/Max 10.1. 87% compliant with using the machine for >4 hours/day. Average use is 5.5 hours a night with AHI 1.3. Encounters Date Type Department Care Team Description 03/31/2025 Telephone [facility] Pulmonary [address] [place] [phone] Jeremias Drew MA 03/29/2025 8:15 AM EDT Office Visit Pulmonology [address] [phone] Nikolas Carrillo MD SALVATORE (obstructive sleep apnea) (Primary Dx); Lung nodule; Pulmonary sarcoidosis ([facility] V24); Mild asthma, unspecified whether complicated, unspecified whether persistent 03/23/2025 Telephone Gastroenterology [address] [phone] Neena Jama MD 03/18/2025 Telephone Adult Medicine [address] [phone] Kacey Kinsey MD 03/16/2025 1:35 PM EDT - 03/16/2025 11:59 PM EDT Hospital Encounter [address] [phone] Right hip pain Discharge Disposition: Home or Self Care 03/16/2025 1:30 PM EDT Office Visit [address] [phone] Kassy Tripp PA 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); Right hip pain; Right testicular pain 03/15/2025 Telephone Adult [address] [phone] Kacey Kinsey MD 01/26/2025 3:00 PM EDT Office Visit [address] [phone] Marshal Torres, SCIENCE CONSULTANT Mathew-Schlatter's disease of right lower extremity (Primary Dx); Chronic pain of right knee; Type 2 diabetes mellitus with hyperglycemia, without long-term current use of insulin (CMS/HCC V24, CMS/HCC V28); Encounter for screening for malignant neoplasm of prostate; Encounter for screening for malignant neoplasm of colon 01/25/[address] [phone] Deidre Santana PA 01/21/2025 4:30 PM EDT Office Visit [address] [phone] Deidre Santana PA Type 2 diabetes mellitus with stage 3 chronic kidney disease, without long-term current use of insulin, unspecified whether stage 3a or 3b CKD (CMS/HCC V24, CMS/HCC V28) (Primary Dx); 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 01/21/[address] [phone] Kacey Kinsey MD 01/20/2025 4:14 PM EDT - 01/20/2025 11:59 PM EDT Hospital Encounter XRAY [address] [phone] Chronic pain of right knee Discharge Disposition: Home or Self Care 01/20/2025 4:00 PM EDT Office Visit Adult Medicine [address] [phone] Kacey Kinsey MD Chronic pain of right knee (Primary Dx); Obesity (BMI 30.0-34.9); SALVATORE (obstructive sleep apnea); Elevated LFTs; Type 2 diabetes mellitus with stage 3 chronic kidney disease, without long-term current use of insulin, unspecified whether stage 3a or 3b CKD ([facility] V24, [facility] V28); Gross hematuria from Last 3 Months Immunizations Name Administration Dates Next Due Tdap Tetanus diptheria acell ular pertussis (Boostrix; Adacel) 7yo and older 08/03/2008 Surgical History Surgery Date Site/Laterality Comments TONSILLECTOMY ADENOIDECTOMY, BILATERAL MYRINGOTOMY AND TUBES PROCEDURE: CT TONSILLECTOMY & ADENOIDECTOMY <AGE 10 Medical History [...] on file Sexual Orientation Not on file Obstetrics History Last Filed Vital Signs Vital Sign Reading Time Taken Comments Blood Pressure 130/80 03/29/2025 8:21 AM EDT Pulse 76 03/29/2025 8:21 AM EDT Temperature 35.7 C (96.3 F) 03/29/2025 8:21 AM EDT Respiratory Rate 12 03/29/2025 8:21 AM EDT Oxygen Saturation 98% 03/29/2025 8:21 AM EDT Inhaled Oxygen Concentration - - Weight 87.9 kg (193 lb 12.8 oz) 03/29/2025 8:21 AM EDT Height 167.6 cm (5' 6 ) 03/29/2025 8:21 AM EDT Body Mass Index 31.28 03/29/2025 8:21 AM EDT Plan of Treatment Upcoming Encounters Date Type Department Care Team (Late st Contact Info) Description 05/24/2025 3:15 PM EST Office Visit Adult [facility] [place] [address], [place] [phone] Kacey Kinsey MD [address] [place] [address] 06/07/2025 8:00 AM EST Appointment [facility] Endoscopy [address] [place] [phone] Stef Rios DO [address] [facility] [address] [place] [address] 06/11/2025 1:00 PM EST Ancillary Procedure [facility] [address] [facility] [address] [place] [phone] 06/14/2025 4:40 PM EST Office Visit Endocrinology - [place] [address] [place] [address] Soni Ahn PA [address] [place] [address] Health Maintenance Due Date Last Done Comments Diabetes: Annual Foot Exam 09/29/1983 Hepatitis B Vaccines (1 of 3 - 19+ 3-dose series) 1992 Pneumococcal Vaccine: 50+ Years (1 of 2 - PCV) 1992 Zoster Vaccines (1 of 2) 1992 DTaP,Tdap,and Td Vaccines (2 - Td or Tdap) 08/03/2018 08/03/2008 Colorectal Cancer Screening: Colonoscopy 06/30/2022 HIV Screening 06/30/2022 Social Influencers of Health Screening 06/30/2022 Depression Screening 07/22/2024 COVID-19 Vaccine ( - 2024-2 6 season) 2025 07/28/2021, 01/20/2021, 12/30/2020 Influenza Vaccine (#1) 2025 Diabetes: Annual Retina Eye Exam 05/04/2025 05/04/2024 Diabetes: Annual Urine Albumin-Creatinine Ratio (uACR) 06/19/2025 06/19/2024, 09/03/2022 Diabetes: Blood Sugar Contro l Test (HGBA1C) 07/23/2025 01/20/2025, 06/19/2024, 08/05/2023 Diabetes: Annual GFR (Glomerular Filtration Rate) 01/20/2026 01/20/2025, 08/05/2023 Hypertension/CHF/CAD Annual BMP Blood Test 01/20/2026 01/20/2025, 08/05/2023 Cholesterol Screening (Lipid Panel) 06/19/2029 06/19/2024, 02/02/2022 RSV Immunization Adult Patients (1 - 1-dose 75+ series) 2048 Hepatitis C Screening Completed 07/10/2021 HIB Vaccines [...] patient's age to complete this topic Meningococcal B Vaccine Aged Out No l onger eligible based on patient's age to complete this topic RSV Immunization Patients Under 20 months Aged Out No longer eligible b ased on patient's age to complete this topic Varicella Vaccines Aged Out No longer eligible based on patient's age to complete this topic Procedures Procedure Name Priority Date/Time Associated Diagnosis Comments LITTLE URINE CULTURE TUBE Routine 03/16/20 2:21 PM EDT Right hip pain Right testicular pain URINALYSIS WITH REFLEX MICROSCOPIC AND CULTURE Routine 03/16/2025 1:54 PM EDT Right hip pain Right testicular pain THYROID STIMULATING HORMONE WITH REFLEX TO FREE T4 AND FREE T3 Routine 03/16/2025 1:54 PM EDT 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 PROSTATE SPECIFIC ANTIGEN SCREEN Routine 03/16/2025 1:54 PM EDT Encounter for screening for malignant neoplasm of prostate URINALYSIS WITH REFLEX MICROSCOPIC AND CULTURE Routine 03/16/2025 1:54 PM EDT Right hip pain Right testicular pain CULTURE URINE Routine 03/16/2025 1:54 PM EDT Right hip pain Right testicular pain XR HIP 2-3 VIEWS RIGHT Routine 1:42 PM EDT Right hip pain POC GLUCOSE Routine 01/21/2025 4:26 PM EDT Type 2 diabetes mellitus with stage 3 chronic kidney disease, without long-term current use of insulin, unspecified whether stage 3a or 3b CKD (CMS/HCC V24, [facility] V28) TRIIODOTHYRONINE FREE Routine 01/20/2025 4:34 PM EDT 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 FREE THYROXINE WITH REFLEX TO FREE TRIIODOTHYRONINE Routine 01/20/2025 4:34 PM EDT 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 CBC WITH AUTO DIFFERENTIAL Routine 01/20/2025 4:34 PM EDT Leukopenia, unspecified type HEMOGLOBIN A1C Routine 01/20/2025 4:34 PM EDT Type 2 diabetes mellitus with hyperglycemia, without long-term current use of insulin (CMS/HCC V24, CMS/[facility] V28) BASIC METABOLIC PANEL Routine 01/20/2025 4:34 PM EDT 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 Hyperlipidemia, unspecified hyperlipidemia type THYROID STIMULATING HORMONE WITH REFLEX TO FREE T4 AND FREE T3 Routine 01/20/2025 4:34 PM EDT 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 CBC AND DIFFERENTIAL Routine 01/20/2025 4:34 PM EDT Leukopenia, unspecified type XR KNEE 4+ VIEWS RIGHT Routine 4:26 PM EDT Chronic pain of right knee MICROALBUMIN CREATININE URINE RATIO Routine 06/19/2024 10:02 AM EST Type II diabetes mellitus with neurological manifestations (CMS/HCC V24, CMS/HCC V28) Hyperlipidemia LIPID PANEL WITH REFLEX TO DIRECT LDL Routine 06/19/2024 10:02 AM EST Type II diabetes mellitus with neurological manifestations (CMS/HCC V24, CMS/HCC V28) Hyperlipidemia HEPATITIS C SCREENING Routine 07/10/2021 from Last 3 Months or Most Recently Relevant to Health Maintenance Results * Little urine culture tube (03/16/2025 2:21 PM EDT) Pathologist [facility] Extra Tube Hold for add-ons. 03/16/2025 5:01 PM EDT [facility] Comment:Auto resulted. Urine Urine specimen obtained by clean catch procedure / Unknown Non-blood Collection / Unknown 03/16/2025 2:21 PM EDT 03/16/2025 2:21 PM EDT Kassy ANGEL LAB URINE ORDERABLES Fin al Result [facility] [address] [place] [address], [place] [phone] * Prostate specific antigen screen (03/16/2025 1:54 PM EDT) [facility] PSA 0.26 0.00 - 4.00 ng/mL LAB CHEMISTRY METHOD 03/16/2025 5:41 PM EDT [facility] Blood Venous blood specimen / Unknown Venipuncture / Unknown 03/16/2025 1:54 PM EDT 03/16/2025 1:54 PM EDT Narrative [facility] - 03/16/2025 5:41 PM EDT The Siemens Advia Centaur Chemiluminescent Immunoassay is used. Results obtained with different assay methods or kits cannot be used interchangeably. Results cannot be interpreted as absolute evidence of the presence or absence of malignant disease. us Marshal Torres NP LAB BLOOD ORDERABLES Final R esult [facility] [address] [place] [address], [place] [phone] * (ABNORMAL) Urinalysis with reflex microscopic and culture (03/16/2025 1:54 PM EDT) Specific [place] Urine 1.018 1.003 - 1.030 LAB URINALYSIS - AUTOMATED METHOD 03/16/2025 6:37 PM EDT [facility] pH, Urine 5.5 5.0 - 8.0 pH LAB URINALYSIS - AUTOMATED METHOD 03/16/2025 6:37 PM EDT [facility] Leukocytes, Urine Trace(A) Negative LAB URINALYSIS - AUTOMATED METHOD 03/16/2025 6:37 PM [facility] Nitrite, Urine Negative Negative LAB URINALYSIS - AUTOMATED METHOD 03/16/2025 6:37 PM EDT [facility] Protein, Urine Negative <=Trace mg/dL LAB URINALYSIS - AUTOMATED METHOD 03/16/2025 6:37 PM EDT [facility] Glucose, Urine Negative Negative mg/dL LAB URINALYSIS - AUTOMATED METHOD 03/16/2025 6:37 PM [facility] Ketones, Urine Negative Negative mg/dL LAB URINALYSIS - AUTOMATED METHOD 03/16/2025 6:37 PM [facility] Urobilinogen, Urine 0.2 0.2 - 1.0 mg/dL LAB URINALYSIS - AUTOMATED METHOD 03/16/2025 6:37 PM EDT [facility] Bilirubin, Urine Negative Negative LAB URINALYSIS - AUTOMATED METHOD 03/16/2025 6:37 PM EDT [facility] Blood, Urine Negative Negative LAB URINALYSIS - AUTOMATED METHOD 03/16/2025 6:37 PM EDT [facility] RBC, Urine 0.5 0 - 4 /HPF LAB URINALYSIS - AUTOMATED METHOD 03/16/2025 6:37 PM EDT [facility] WBC, Urine 3.0 0 - 4 /HPF LAB URINALYSIS - AUTOMATED METHOD 03/16/2025 6:37 PM EDT [facility] Squamous Epithelial, Urine 31 0 - 60 /LPF LAB URINALYSIS - AUTOMATED METHOD 03/16/2025 6:37 PM [facility] Bacteria, Urine Negative Negative /HPF LAB URINALYSIS - AUTOMATED METHOD 03/16/2025 6:37 PM T [facility] Hyaline Casts, Urine 0.8 0 - 3 /LPF LAB URINALYSIS - AUTOMATED METHOD 03/16/2025 6:37 PM [facility] Urine Urine specimen obtained by clean catch procedure / Unknown Non-blood Collection / Unknown 03/16/2025 1:54 PM EDT 03/16/2025 1:54 PM EDT Kassy ANGEL LAB URINE ORDERABLES Fin al Result [facility] [address] [place] [address], * Thyroid stimulating hormone with reflex to free t4 and free t3 (03/16/2025 1:54 PM EDT) Only the most recent of2 resultswithin the time period is included. TSH 2.33 0.40 - 4.00 mcIU/mL LAB CHEMISTRY METHOD 03/16/2025 6:10 PM EDT [facility] Blood Venous blood specimen / Unknown Venipuncture / Unknown 03/16/2025 1:54 PM EDT 03/16/2025 1:54 PM EDT Deidre ANGEL LAB BLOOD ORDERABLES Final Result [facility] [address] [place] [address], [place] [phone] * Culture urine (03/16/2025 1:54 PM EDT) Culture, Urine No growth 03/17/2025 1:39 PM EDT [facility] Urine Urine specimen obtained by clean catch procedure / Unknown Non-blood Collection / Unknown 03/16/2025 1:54 PM EDT 03/16/2025 6:37 PM EDT Kassy ANGEL LAB MICROBIOLOGY - GENER AL ORDERABLES Final Result [facility] [address] [place] [address], [place] [phone] * XR Hip 2-3 Views Right (03/16/2025 1:42 PM EDT) Anatomical Region Laterality Modality Lower Extremities, Hip Right Radiograp hic Imaging 03/16/2025 2:45 PM EDT Narrative 03/16/2025 2:46 PM EDT AP view of the pelvis. Right hip, 2 views. History right hip pain. There is no evidence of fractures or dislocations. There are mild degenerative changes in the arm right hip joint with small osteophytes arising from the lateral margin of the acetabulum. There are small osteophytes arising from the greater trochanter. SI joints are grossly normal. CONCLUSIONS: Mild degenerative changes. No evidence of fractures or dislocations. -------- FINAL REPORT -------- Dictated By: Kathya Barkley Dictated Date: 03/16/2025 14:45 ET Assigned Physician: Kathya Barkley Reviewed and Electronically Signed By: Kathya Barkley Signed Date: 03/16/2025 14:46 ET Workstation ID: [id number] Transcribed By: Self Edit Transcribed Date: 03/16/2025 14:45 ET Procedure Note Kathya Barkley MD - 03/16/2025 AP view of the pelvis. Right hip, 2 views. History right hip pain. There is no evidence of fractures or dislocations. There are milddegenerative changes in the arm right hip joint with small osteophytesarising from the lateral margin of the acetabulum. There are smallosteophytes arising from the greater trochanter. SI joints are grosslynormal. CONCLUSIONS: Mild degenerative changes. No evidence of fractures ordislocations. -------- FINAL REPORT -------- Dictated By: Kathya Barkley Dictated Date: 03/16/2025 14:45 ET Assigned Physician: Kathya Barkley Reviewed and Electronically Signed By: Kathya Barkley Signed Date: 03/16/2025 14:46 ET Workstation ID: [id number] Transcribed By: Self Edit Transcribed Date: 03/16/2025 14:45 ET Kassy ANGEL IMG XR PROCEDURES Final Result * POC glucose manually resulted (01/21/2025 4:26 PM EDT) Pathologist [facility] Glucose POC 209 mg/dL Comment:non fasting Blood Capillary blood specimen / Unknown 01/21/2025 4:26 PM EDT Deidre ANGEL POINT OF CARE TEST ENTER/ED IT ORDERABLES Final Result * Free thyroxine with reflex to free triiodothyronine (01/20/2025 4:34 PM EDT) Pathologist [facility] Free T4 1.01 0.70 - 1.80 ng/dL LAB CHEMISTRY METHOD 01/20/2025 8:51 PM EDT [facility] Blood Venous blood specimen / Unknown Venipuncture / Unknown 01/20/2025 4:34 PM EDT 01/20/2025 4:34 PM EDT us Soni ANGEL LAB BLOOD ORDERABLES Final Resul t [facility] [address] [place] [address], * (ABNORMAL) CBC auto differential (01/20/2025 4:34 PM EDT) WBC 6.4 4.8 - 10.8 K/mcL LAB HEMETOLOGY METHOD 01/20/2025 6:00 PM EDT [facility] RBC 4.70 4.50 - 5.50 M/mcL LAB HEMETOLOGY METHOD 01/20/2025 6:00 PM EDT [facility] Hemoglobin 15.2 13.5 - 17.5 g/dL LAB HEMETOLOGY METHOD 01/20/2025 6:00 PM EDT [facility] Hematocrit 43.8 42.0 - 54.0 % LAB HEMETOLOGY METHOD 01/20/2025 6:00 PM EDT [facility] MCV 92.6 79.0 - 98.0 FL LAB HEMETOLOGY METHOD 01/20/2025 6:00 PM EDT [facility] MCH 32.1(H) 27.0 - 32.0 pcg LAB HEMETOLOGY METHOD 01/20/2025 6:00 PM EDT [facility] MCHC 34.7 32.0 - 37.0 g/dL LAB HEMETOLOGY METHOD 01/20/2025 6:00 PM [facility] RDW 12.4 11.0 - 15.0 % LAB HEMETOLOGY METHOD 01/20/2025 6:00 PM [facility] Platelets 268 130 - 400 K/mcL LAB HEMETOLOGY METHOD 01/20/2025 6:00 PM [facility] MPV 9.9 7.0 - 11.0 FL LAB HEMETOLOGY METHOD 01/20/2025 6:00 PM [facility] NRBC 0.0 <1.0 % LAB HEMETOLOGY METHOD 01/20/2025 6:00 PM [facility] NRBC Absolute 0.00 <0.10 K/mcL LAB HEMETOLOGY METHOD 01/20/2025 6:00 PM [facility] Neutrophils Relative 33.9 % LAB HEMETOLOGY METHOD 01/20/2025 6:00 PM [facility] Lymphocytes Relative 54.7 % LAB HEMETOLOGY METHOD 01/20/2025 6:00 PM [facility] Monocytes Relative 10.0 % LAB HEMETOLOGY METHOD 01/20/2025 6:00 PM [facility] Eosinophils Relative 0.8 % LAB HEMETOLOGY METHOD 01/20/2025 6:00 PM [facility] Basophils Relative 0.3 % LAB HEMETOLOGY METHOD 01/20/2025 6:00 PM [facility] Immature Granulocytes Relative 0.3 % LAB HEMETOLOGY METHOD 01/20/2025 6:00 PM [facility] Neutrophils Absolute 2.18 1.50 - 7.00 K/mcL LAB HEMETOLOGY METHOD 01/20/2025 6:00 PM [facility] Lymphocytes Absolute 3.51 1.00 - 5.00 K/mcL LAB HEMETOLOGY METHOD 01/20/2025 6:00 PM [facility] Monocytes Absolute 0.64 0.20 - 1.00 K/mcL LAB HEMETOLOGY METHOD 01/20/2025 6:00 PM EDT [facility] Eosinophils Absolute 0.05 0.00 - 0.50 K/mcL LAB HEMETOLOGY METHOD 01/20/2025 6:00 PM EDT [facility] Basophils Absolute 0.02 0.00 - 0.20 K/mcL LAB HEMETOLOGY METHOD 01/20/2025 6:00 PM EDT [facility] Immature Granulocytes Absolute 0.02 0.00 - 0.03 K/[facility] LAB HEMETOLOGY METHOD 01/20/2025 6:00 PM EDT [facility] Blood Venous blood specimen / Unknown Venipuncture / Unknown 01/20/2025 4:34 PM EDT 01/20/2025 4:34 PM EDT Kacey Kinsey MD LAB BLOOD ORDERABLES Final Resul t Performing Organization Address City/[facility]/ZIP Co de Phone Number [facility] [address] [place] [address], [place] [phone] * Triiodothyronine free (01/20/2025 4:34 PM EDT) T3, Free 322 230 - 420 pcg/dL LAB CHEMISTRY METHOD 01/20/2025 9:13 PM EDT [facility] Blood Venous blood specimen / Unknown Venipuncture / Unknown 01/20/2025 4:34 PM EDT 01/20/2025 4:34 PM EDT Soni ANGEL LAB BLOOD ORDERABLES Final Resul t Performing Organization Address City/[facility]/ZIP Co de Phone Number [facility] [address] [place] [address], [place] [phone] * (ABNORMAL) Hemoglobin A1c (01/20/2025 4:34 PM EDT) Hemoglobin A1C 8.3(H) <6.5 % LAB CHEMISTRY METHOD 01/20/2025 10:18 PM EDT [facility] Mean Bld Glu Estim. 192 mg/dL LAB CHEMISTRY METHOD 01/20/2025 10:18 PM [facility] Blood Venous blood specimen / Unknown Venipuncture / Unknown 01/20/2025 4:34 PM EDT 01/20/2025 4:34 PM EDT us Soni ANGEL LAB BLOOD ORDERABLES Final Resul t [facility] [address] [place] [address], [place] [phone] * (ABNORMAL) Basic metabolic panel (01/20/2025 4:34 PM EDT) Sodium 137 133 - 145 mmol/L LAB CHEMISTRY METHOD 01/20/2025 7:18 PM [facility] Potassium 3.9 3.5 - 5.5 mmol/L LAB CHEMISTRY METHOD 01/20/2025 7:18 PM [facility] Chloride 102 96 - 110 mmol/L LAB CHEMISTRY METHOD 01/20/2025 7:18 PM [facility] CO2 30 21 - 32 mmol/L LAB CHEMISTRY METHOD 01/20/2025 7:18 PM [facility] Anion Gap 5 3 - 11 LAB CHEMISTRY METHOD 01/20/2025 7:18 PM [facility] Glucose 122(H) 70 - 100 mg/dL LAB CHEMISTRY METHOD 01/20/2025 7:18 PM [facility] BUN 17 5 - 25 mg/dL LAB CHEMISTRY METHOD 01/20/2025 7:18 PM [facility] Creatinine 0.92 0.70 - 1.30 mg/dL LAB CHEMISTRY METHOD 01/20/2025 7:18 PM [facility] eGFR 101 >=60 mL/min/1. 73m2 LAB CHEMISTRY METHOD 01/20/2025 7:18 PM EDT [facility] Comment:Calculation based on the Chronic Kidney Disease Epidemiology Collaboration (CKD-EPI) equation refit without adjustment for race. BUN/Creatinine Ratio 18.5 LAB CHEMISTRY METHOD 01/20/2025 7:18 PM EDT [facility] Calcium 9.4 8.5 - 10.5 mg/dL LAB CHEMISTRY METHOD 01/20/2025 7:18 PM EDT [facility] Blood Venous blood specimen / Unknown Venipuncture / Unknown 01/20/2025 4:34 PM EDT 01/20/2025 4:34 PM EDT us [facility] BLOOD ORDERABLES Final Resul t [facility] [address] [place] [address], * XR Knee 4+ Views Right (01/20/2025 4:26 PM EDT) Anatomical Region Laterality Modality Lower Extremities, Knee Right Radiogra phic Imaging 01/20/2025 5:18 PM EDT Impressions 01/20/2025 5:18 PM EDT No acute fracture or dislocation of the right knee. -------- FINAL REPORT -------- Dictated By: Ashanti Alvarez Dictated Date: 01/20/2025 17:18 ET Assigned Physician: Ashanti Alvarez Reviewed and Electronically Signed By: Ashanti Alvarez Signed Date: 01/20/2025 17:18 ET Workstation ID: [id number] Transcribed By: Self Edit Transcribed Date: 01/20/2025 17:18 ET Narrative 01/20/2025 5:18 PM EDT HISTORY: pain TECHNIQUE: 4 views of the right knee COMPARISON: None FINDINGS: No acute fracture or dislocation is seen. There is no joint effusion present. The medial and lateral joint spaces appear normal. Fragmentation at the tibial tuberosity is chronic. Enthesopathy of the superior pole of the patella. Soft tissues are unremarkable. Procedure Note Ashanti Alvarez MD - 01/20/2025 HISTORY: pain TECHNIQUE: 4 views of the right knee COMPARISON: None FINDINGS: No acute fracture or dislocation is seen. There is no joint effusionpresent. The medial and lateral joint spaces appear normal. Fragmentationat the tibial tuberosity is chronic. Enthesopathy of the superior pole ofthe patella. Soft tissues are unremarkable. IMPRESSION: No acute fracture or dislocation of the right knee. -------- FINAL REPORT -------- Dictated By: Ashanti Alvarez Dictated Date: 01/20/2025 17:18 ET Assigned Physician: Ashanti Alvarez Reviewed and Electronically Signed By: Ashanti Alvarez Signed Date: 01/20/2025 17:18 ET Workstation ID: [id number] Transcribed By: Self Edit Transcribed Date: 01/20/2025 17:18 ET Kacey Kinsey MD IMG XR PROCEDURES Final Result * (ABNORMAL) Lipid panel with reflex to direct LDL (06/19/2024 10:02 AM EST) Cholesterol 224(H) 0 - 200 mg/dL LAB CHEMISTRY METHOD 06/19/2024 12:56 PM [facility] Triglycerides 278(H) 0 - 150 mg/dL LAB CHEMISTRY METHOD 06/19/2024 12:56 PM [facility] HDL 54 >=40 mg/dL LAB CHEMISTRY METHOD 06/19/2024 12:56 PM [facility] LDL Calculated 114(H) 0 - 100 mg/dL LAB CHEMISTRY METHOD 06/19/2024 12:56 PM [facility] VLDL Cholesterol Gabriel 55.6 mg/dL LAB CHEMISTRY METHOD 06/19/2024 12:56 PM [facility] Non HDL Chol. (LDL+VLDL) 170(H) <145 mg/dL LAB CHEMISTRY METHOD 06/19/2024 12:56 PM [facility] Chol/HDL Ratio 4.1 0.0 - 4.4 LAB CHEMISTRY METHOD 06/19/2024 12:56 PM EST [facility] Blood Venous blood specimen / Unknown Venipuncture / Unknown 06/19/2024 10:02 AM EST 06/19/2024 10:02 AM EST [facility] BLOOD ORDERABLES Fin al Result Performing Organization Address City/[facility]/ZIP Co de Phone Number [facility] [address] [place] [address], [place] [phone] * Microalbumin creatinine urine ratio (06/19/2024 10:02 AM EST) [facility] Creatinine, Urine 56.0 mg/dL LAB CHEMISTRY METHOD 06/19/2024 1:14 PM [facility] Microalb, Ur 8.8 0.0 - 29.0 mg/L LAB CHEMISTRY METHOD 06/19/2024 1:14 PM EST [facility] Microalb/Creat Ratio 16 <30 mg/g creat LAB CHEMISTRY METHOD 06/19/2024 1:14 PM [facility] Urine Urine specimen obtained by clean catch procedure / Unknown Non-blood Collection / Unknown 06/19/2024 10:02 AM EST 06/19/2024 10:02 AM EST [facility] URINE ORDERABLES Fin al Result Performing Organization Address [facility]/ZIP Co de Phone Number [facility] [address] [place] [address], [place] [phone] * Hepatitis C Screening (07/10/2021) [facility] Hepatitis C Screening Abstracted Historical Provider HEALTH MAINTENANCE Final Result from Last 3 Months or Most Recently Relevant to Health Maintenance Insurance [facility] Care Teams Special Police Officer Relationship Specialty Start Date End Date Kcaey Kinsey MD [address] [place] [address] PCP - General Internal Medicine 06/08/20
== END 2025-04-13 16:14 | disposition home or self-care (01) ==
LOC: HO.US 16:13
PROVIDERS: PCP Internal Medicine; Visit Provider Urology
DX: R31.0 Gross hematuria (principal)
CPT/HCPCS: 76775

== ENCOUNTER → 2025-04-13 16:15 | Outpatient (BNV) | payer BC, SELFPAY | PROVIDERS: PCP Internal Medicine; Visit Provider Radiology Diagnostic Radiology | DX: R31.0 Gross hematuria (principal) | CPT/HCPCS: 76775 ==

== ENCOUNTER 2025-04-21 16:26 | Outpatient (AMB) | payer BC, SELFPAY ==
--- NOTE | 2025-04-21 16:26 | A.OFFVIS_ITS ---
Intake Visit Reasons: 7m/US Intake Note: Patient is Present today via telehealth for a 7m follow up/US Urology Med: None Antibiotic Allergy: None Blood Thinner:None Product Manufacturing Professional Required: No Accompanied by: Self / Same As Patient Allergies No Known Allergies Allergy (Verified 04/21/25 16:27) Medication List - Last Reconciled 04/21/25 by Robert Shah MD albuterol sulfate 90 mcg/actuation 2 inhalations inhalation Q4-6H PRN cyclobenzaprine 10 mg PO Q8H ibuprofen 600 mg PO Q6H PRN HPI Comments Details: 04/21/25--Tato is a 49-year-old male who was initially evaluated due to symptoms of hematuria and UTI office cystoscopy was done on 08/27/2024 findings were within normal limits telehealth follow-up today to review renal ultrasound which was performed on 04/13/2025. Review of chart PSA 08/25/2024 is 0.58 History of Present Illness The patient is a 49-year-old male presenting with hematuria and urinary tract infection symptoms. The initial evaluation was prompted by these symptoms, leading to an office cystoscopy on August 27, 2024, which showed findings within normal limits. A renal ultrasound was performed on April 13, 2025, as part of the follow- up, and the results were normal, indicating no abnormalities in the kidneys. The patient's prostate-specific antigen (PSA) level was reviewed and found to be 0.58, which is within normal limits. Results - Cystoscopy on 08/27/24: Normal findings - Renal ultrasound on 04/13/25: Normal - PSA level: 0.58 (normal) Plan 1. Hematuria - Continue monitoring with follow-up appointments and urine tests. 2. Urinary Tract Infection (Uti) - Monitor symptoms and follow up if any issues arise before the next scheduled appointment. 3. Preventative Care: Renal Ultrasound - Renal ultrasound was normal; continue routine monitoring. 08/27/24--Here for cystoscopy. LV 07/27/24 seen in evaluation for hematuria, urine sent for cytology came back negative for malignant cells. He had CTAPwIV contrast-07/21/24-negative for renal mass. Cystoscopy findings: No suspicious bladder lesions visualized. 07/27/24--48 years old male with a history of diabetes presented to the ED on 07/21/2024 with a history of chills 2 days and start of blood urine day of presentation to ED. He was treated with 1 g of ceftriaxone. Urine and blood cultures came back no growth. He states that he has not had any further blood in the urine. He was not given any antibiotics on discharge. He states he has never had issue in the past. He denies history of cigarette use. We will send urine for cytology in follow-up office cystoscopy. 07/21/24--CTAP w IV contrast--Limited exam due to excreted IV contrast opacifying both kidney pelvis and proximal ureters. A small radiopaque calculi cannot be excluded. However there is no hydroureteronephrosis seen. The bladder is unremarkable. [facility] Medical History Hematuria H/O urinary frequency Chest pain Generalized headaches Social History Alcohol intake: current Alcohol intake frequency: holidays/special occasions only Review of Systems Const All systems reviewed & are unremarkable except as noted in HPI and below Reports no additional complaints Eyes Reports no additional complaints ENT Reports no additional complaints Card Reports no additional complaints Resp Reports no additional complaints GI Reports no additional complaints Reports as per HPI Musc Reports no additional complaints Skin/Breast Reports system reviewed and no additional complaints, except as documented Neuro Reports no additional complaints Psych Reports no additional complaints Endo Reports no additional complaints Tello/Lymph Reports no additional complaints Aller/Immun Reports no additional complaints Telehealth Telehealth Telehealth Platform: [facility] Location of provider rendering services: practice address Location of patient: address on file Patient Identification confirmed using: Name, : Yes Telehealth method: voice only Patient verbally consented to treatment: Yes Patient verbally consented to billing insurance company: Yes Patient informed of any privacy concerns related to visit: Yes Minutes spent on Phone/Video with Pt.: 12 Results Reviewed Results Reviewed: Date of Service: 04/13/25 US RETROPERITONEAL LIMITED (RENAL ONLY) CLINICAL INFORMATION: Gross hematuria.. COMPARISON: Correlated to CT dated July 21, 2024. TECHNIQUE: Real-time ultrasound kidneys using grayscale and color technique. FINDINGS: RIGHT KIDNEY: 12 x 6 x 5 cm (SAG x AP x TRV). Volume: 199 cc. Echotexture is normal. Renal cortical thickness is normal. No hydronephrosis. No solid or cystic lesion. LEFT KIDNEY: 12 x 6 x 5 cm (SAG x AP x TRV). Volume: 187 cc. Echotexture is normal. Renal cortical thickness is normal. No hydronephrosis. No gross solid or cystic lesion. IMPRESSION: Normal exam.. Collected: 07/27/24 Location: [facility] Received: 07/28/24 Diagnosis Urine: Negative for high-grade urothelial carcinoma. See comment. COMMENT: Paucicellular specimen consisting of few degenerated single urothelial cells, red blood cells and degenerated chronic inflammatory cells. Clinical History Gross hematuria Material Received Urine Gross Description Received is 35 cc of cloudy yellow fluid from which a ThinPrep slide is prepared. Date of Service: 07/21/24 CT ABDOMEN AND PELVIS WITH CONTRAST CLINICAL INFORMATION: Hematuria. COMPARISON: None available. TECHNIQUE: Multidetector volumetric images were obtained from the superior aspect of the liver through the pubic symphysis following administration 85 mL of Omnipaque 350 intravenous contrast. Sagittal and coronal reformatted images were obtained on the technologist's workstation. Oral contrast: No This CT examination was performed using dose optimization techniques as appropriate, variously including the following: *Automated exposure control *Adjustment of mA and/or kV according to patient size (this includes techniques or standardized protocols for targeted exams where dose is matched to indication/reason for exam; i.e. extremities or head) *Use of iterative reconstruction technique DLP: 609 mGy-cm FINDINGS: LUNG BASES: The visualized lung bases are unremarkable. LIVER, GALLBLADDER, AND BILIARY TREE: The liver is normal in size, shape, and diffusely hypoattenuated. No focal hepatic lesion or biliary ductal dilatation is present. The gallbladder is unremarkable with no evidence of radiopaque gallstones, gallbladder wall thickening, or obvious pericholecystic inflammatory changes. PANCREAS: Unremarkable. SPLEEN: Unremarkable. ADRENAL GLANDS: Unremarkable. KIDNEYS AND URETERS: The kidneys are normal in size, shape, and attenuation. There is normal cortical thickness. Excluded urinary contrast opacifies bilateral kidney pelvis and proximal ureters with no hydroureteronephrosis. Radiopaque calculi cannot be excluded as this segment contrast opacifying the kidney pelvises. Obviously no hydronephrosis seen. BLADDER: Unremarkable. GASTROINTESTINAL TRACT: There is scattered stool and gas seen throughout the colon without distention. The small bowel loops are normal caliber. Appendix is normal caliber. No free air or free fluid seen. ABDOMINAL WALL: No significant hernia is appreciated. LYMPH NODES: Normal. VASCULAR: Unremarkable. PELVIC VISCERA: The prostate gland is normal size. No abnormal pelvic lymph nodes or inguinal hernia seen. OSSEOUS STRUCTURES: No aggressive lytic or sclerotic process seen. There is mild degenerative disc changes with posterior spondylosis L5-S1 disc level. IMPRESSION: Limited exam due to excreted IV contrast opacifying both kidney pelvis and proximal ureters. A small radiopaque calculi cannot be excluded. However there is no hydroureteronephrosis seen. The bladder is unremarkable. Assessment & Plan Assessment & Plan (1) Screening PSA (prostate specific antigen): Code(s): Z12.5 - Encounter for screening for malignant neoplasm of prostate Category: Medical (2) Gross hematuria: Code(s): R31.0 - Gross hematuria Category: Medical Plan Plan 1. Hematuria - Continue monitoring with follow-up appointments and urine tests. 2. Urinary Tract Infection (Uti) - Monitor symptoms and follow up if any issues arise before the next scheduled appointment. 3. Preventative Care: Renal Ultrasound - Renal ultrasound was normal; continue routine monitoring. Patient Instructions: The patient had an opportunity to ask questions regarding treatment plan. The patient expressed understanding and agreement with the above treatment plan. The patient is aware they should contact our office by phone for worsening of their current condition or the appearance of new symptoms. Compliance is encouraged with any medications and followup testing that is ordered. It is a privilege to be allowed the opportunity to participate in the urologic care of your patient. If you have any questions or concerns regarding treatment for the above conditions please do not hesitate to contact me. The office telephone contact is [phone]. This note is constructed in part using voice recognition software. While every effort has been made to ensure accuracy heel molder errors may have been included. Yours sincerely, Robert Shah MD Scribe Plan - Not visible on output: Patient was informed and verbally consented to the use of an ambient scribe for clinic note documentation during this visit. Coding Level of Care Code Tele Est Pt Level 3 (46373) Diagnoses Screening PSA (prostate specific antigen) Z12.5 Gross hematuria R31.0
--- OUTSIDE RECORDS SUMMARY | 2025-04-21 16:42 | XMS_ITS | Clinical Summary ---
Author Organization [address] [place] [address] [place] [phone] Phone Care Team Providers Care Music Historian Name Role Phone Kacey Kinsey MD Primary Care Provider [phone] Allergies No known active allergies Medications FREESTYLE [...] CLEAN TIP AND REPLACE CAP 32 mL 1 09/29/19 25 Active semaglutide (OZEMPIC) 1 mg/dose (4 mg/3 mL) injection pen Inject 1 mg under the skin every 7 (seven) days. 3 mL 01/22/20 25 Active blood-glucose sensor (Dexcom G7 Sensor) deviceIndicatio ns:Type 2 diabetes mellitus with stage 3 chronic [...] 25 Active cyclobenzaprine (FLEXERIL) 5 mg tablet TAKE 1 TABLET BY MOUTH AT BEDTIME NEEDED FOR MUSCLE SPASMS. 30 tablet 04/21/20 25 Active cyclobenzaprine (FLEXERIL) 5 mg tablet Take 1 tablet (5 mg total) by mouth at bedtime as needed for muscle spasms. 30 tablet 03/16/20 25 025 Discontinued Active Problems Problem Noted Date Diagnosed Date Type 2 diabetes mellitus wit h hyperglycemia, without long-term current use of insulin ([facility] V24, [facility] V28) 07/10/2024 Type II diabetes mellitus wi th renal manifestations ([facility] V24, CMS/[facility] V28) 10/29/2022 Ventricular premature beats 10/29/2022 Overview (06/05/2024): Ventricular premature beats Assessment & Plan (06/12/2024 2:13 PM EST): Update echocardiogram next year. No PVCs heard on exam or seen on EKG today. 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 I had a long discussion with him and his about this which they seemed understand. I will plan on sending him to a compensation advisor for possible treatment of this and I will also make his soil science technical officer aware of this new diagnosis. He can [...] he would continue to follow with his compensation advisor for any chest CT scans that his [...] II diabetes mellitus wi th neurological manifestations (CMS/HCC V24, CMS/HCC V28) 10/16/2016 RLS (restless legs syndrome) 01/06/2015 Elevated LFTs 08/27/2012 Overview (06/05/2024): 07/02 CTS (carpal tunnel syndrome) 06/12/2010 Overview (06/05/2024): [facility] SALVATORE (obstructive sleep apnea) 06/12/2010 Overview (06/05/2024): cx pulmo 08/14/2016 ResScan 07/11/2016 to 08/09/2016. CPAP@ 6-16/Average 9.2/Max 10.1. 87% compliant with using the machine for >4 hours/day. Average use is 5.5 hours a night with AHI 1.3. Encounters Date Type Department Care Team Description 03/31/2025 Telephone Pulmonary [address] [place] [phone] Jeremias Drew [place] 03/29/2025 8:15 AM EDT Office Visit Pulmonology [address] [phone] Nikolas Carrillo MD SALVATORE (obstructive sleep apnea) (Primary Dx); Lung nodule; Pulmonary sarcoidosis ([facility] V24); Mild asthma, unspecified whether complicated, unspecified whether persistent 03/23/2025 Telephone Gastroenterology [address] [phone] Neena Jama MD 03/18/2025 Telephone Adult Medicine [address] [phone] Kacey Kinsey MD 03/16/2025 1:35 PM EDT - 03/16/2025 11:59 PM EDT Hospital Encounter [address] [phone] Right hip pain Discharge Disposition: Home or Self Care 03/16/2025 1:30 PM EDT Office Visit Adult Medicine [address] [phone] Kassy Tripp PA 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); Right hip pain; Right testicular pain 03/15/2025 Telephone Adult Medicine [address] [phone] Kacey Kinsey MD 01/26/2025 3:00 PM EDT Office Visit Adult [address] [phone] Marshal Torres, CRIMINAL DEFENSE ATTORNEY Roland-Schlatter's disease of right lower extremity (Primary Dx); Chronic pain of right knee; Type 2 diabetes mellitus with hyperglycemia, without long-term current use of insulin (CMS/HCC V24, CMS/HCC V28); Encounter for screening for malignant neoplasm of prostate; Encounter for screening for malignant neoplasm of colon 01/25/[address] [phone] Deidre Santana PA 01/21/2025 4:30 PM EDT Office Visit [address] [phone] Deidre Santana PA Type 2 diabetes mellitus with stage 3 chronic kidney disease, without long-term current use of insulin, unspecified whether stage 3a or 3b CKD (CMS/HCC V24, [facility] V28) (Primary Dx); 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 01/21/2025 Telephone Adult [address] [phone] Kacey Kinsey MD 01/20/2025 4:14 PM EDT - 01/20/2025 11:59 PM EDT Hospital Encounter [address] [phone] Chronic pain of right knee Discharge Disposition: Home or Self Care 01/20/2025 4:00 PM EDT Office Visit Adult [address] [phone] Kacey Kinsey MD Chronic pain of right knee (Primary Dx); Obesity (BMI 30.0-34.9); SALVATORE (obstructive sleep apnea); Elevated LFTs; Type 2 diabetes mellitus with stage 3 chronic kidney disease, without long-term current use of insulin, unspecified whether stage 3a or 3b CKD ([facility] V24, [facility] V28); Gross hematuria from Last 3 Months Immunizations Immunization Administration Dates Next Due Tdap Tetanus diptheria acell ular pertussis (Boostrix; Adacel) 7yo and older 08/03/2008 Surgical History Surgery Date Site/Laterality Comments TONSILLECTOMY ADENOIDECTOMY, BILATERAL MYRINGOTOMY AND TUBES PROCEDURE: DE TONSILLECTOMY & ADENOIDECTOMY <AGE 12 Medical History [...] 3:15 PM EST Office Visit Adult Medicine [address] [place], [place] [phone] Kacey Kinsey MD [address] [place], [place] 06/07/2025 8:00 AM EST Appointment Endoscopy [address] [place] [phone] Stef Rios DO [address] [facility] [address] [place] [address] 06/11/2025 1:00 PM EST Ancillary Procedure [facility] [address] [facility] [address] [place] [phone] 06/14/2025 4:40 PM EST Office Visit Endocrinology - [address] [phone] Soni Ahn PA [address] [place], [place] Health Maintenance Due Date Last Done Comments Colorectal Cancer Screening: Colonoscopy 1973 Diabetes: Annual Foot Exam 09/29/1983 Hepatitis B Vaccines (1 of 3 - 19+ 3-dose series) 1992 Pneumococcal Vaccine: 50+ Years (1 of 2 - PCV) 1992 Zoster Vaccines (1 of 2) 1992 DTaP,Tdap,and Td Vaccines (2 - Td or Tdap) 08/03/2018 08/03/2008 HIV Screening 06/30/2022 Social Influencers of Health Screening 06/30/2022 Depression Screening 07/22/2024 COVID-19 Vaccine (4 - 2024-2 6 season) 2025 07/28/2021, 01/20/2021, 12/30/2020 Influenza Vaccine (#1) 2025 Diabetes: Annual Retina Eye Exam 05/04/2025 05/04/2024 Diabetes: Annual Urine Albumin-Creatinine Ratio (uACR) 06/19/2025 06/19/2024, 09/03/2022 Diabetes: Blood Sugar Contro l Test (HGBA1C) 07/23/2025 01/20/2025, 06/19/2024, 08/05/2023 Diabetes: Annual GFR (Glomerular Filtration Rate) 01/20/2026 01/20/2025, 08/05/2023 Cholesterol Screening (Lipid Panel) [...] Name Priority Date/Time Associated Diagnosis Comments EXTERNAL ULTRASOUND REPORT 04/13/2025 LITTLE URINE CULTURE TUBE Routine 03/16/20 25 2:21 PM EDT Right hip pain Right [...] pain XR HIP 2-3 VIEWS RIGHT Routine 5 1:42 PM EDT Right hip pain POC GLUCOSE Routine 01/21/2025 4:26 PM EDT Type 2 diabetes mellitus with stage 3 chronic kidney disease, without long-term current use of insulin, unspecified whether stage 3a or 3b CKD ([facility] V24, [facility] V28) TRIIODOTHYRONINE FREE Routine 01/20/2025 4:34 PM EDT 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 FREE THYROXINE WITH REFLEX TO FREE TRIIODOTHYRONINE Routine 01/20/2025 4:34 PM EDT 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 CBC WITH AUTO DIFFERENTIAL Routine 01/20/2025 4:34 PM EDT Leukopenia, unspecified type HEMOGLOBIN A1C Routine 01/20/2025 4:34 PM EDT Type 2 diabetes mellitus with hyperglycemia, without long-term current use of insulin ([facility] V24, [facility] V28) BASIC METABOLIC PANEL Routine 01/20/2025 4:34 PM EDT 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 Hyperlipidemia, unspecified hyperlipidemia type THYROID STIMULATING HORMONE WITH REFLEX TO FREE T4 AND FREE T3 Routine 01/20/2025 4:34 PM EDT 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 03/16/2025 5:01 PM EDT [facility] Comment:Auto resulted. Urine Urine specimen obtained by clean catch procedure / Unknown Non-blood Collection / Unknown 03/16/2025 2:21 PM EDT 03/16/2025 2:21 PM EDT Kassy ANGEL LAB URINE ORDERABLES Fin al Result [facility] [address] [place] [address], [place] [phone] * Prostate specific antigen screen (03/16/2025 1:54 PM EDT) PSA 0.26 0.00 - 4.00 ng/mL LAB CHEMISTRY METHOD 03/16/2025 5:41 PM EDT [facility] Blood Venous blood specimen / Unknown Venipuncture / Unknown 03/16/2025 1:54 PM EDT 03/16/2025 1:54 PM EDT Narrative [facility] - 03/16/2025 5:41 PM EDT The Siemens Advia Centaur Chemiluminescent Immunoassay is used. Results obtained with different assay methods or kits cannot be used interchangeably. Results cannot be interpreted as absolute evidence of the presence or absence of malignant disease. us Marshal Torres NP LAB BLOOD ORDERABLES Final R esult [facility] [address] [place] [address], [place] [phone] * (ABNORMAL) Urinalysis with reflex microscopic and culture (03/16/2025 1:54 PM EDT) Specific [place] Urine 1.018 1.003 - 1.030 LAB URINALYSIS - AUTOMATED METHOD 03/16/2025 6:37 PM EDT [facility] pH, Urine 5.5 5.0 - 8.0 pH LAB URINALYSIS - AUTOMATED METHOD 03/16/2025 6:37 PM EDT [facility] Leukocytes, Urine Trace(A) Negative LAB URINALYSIS - AUTOMATED METHOD 03/16/2025 6:37 PM EDT [facility] Nitrite, Urine Negative Negative LAB URINALYSIS - AUTOMATED METHOD 03/16/2025 6:37 PM EDT [facility] Protein, Urine Negative <=Trace mg/dL LAB URINALYSIS - AUTOMATED METHOD 03/16[facility]2025 6:[facility] Glucose, Urine Negative Negative mg/dL LAB URINALYSIS - AUTOMATED METHOD 03/16/2025 6:37 PM EDT [facility] Ketones, Urine Negative Negative mg/dL LAB URINALYSIS - AUTOMATED METHOD 03/16/2025 6:37 PM [facility] Urobilinogen, Urine 0.2 0.2 - 1.0 mg/dL LAB URINALYSIS - AUTOMATED METHOD 03/16/2025 6:37 PM [facility] Bilirubin, Urine Negative Negative LAB URINALYSIS - AUTOMATED METHOD 03/16/2025 6:37 PM EDT [facility] Blood, Urine Negative Negative LAB URINALYSIS - AUTOMATED METHOD 03/16/2025 6:37 PM EDT [facility] RBC, Urine 0.5 0 - 4 /HPF LAB URINALYSIS - AUTOMATED METHOD 03/16/2025 6:37 PM EDT [facility] WBC, Urine 3.0 0 - 4 /HPF LAB URINALYSIS - AUTOMATED METHOD 03/16/2025 6:37 PM EDT [facility] Squamous Epithelial, Urine 31 0 - 60 /LPF LAB URINALYSIS - AUTOMATED METHOD 03/16/2025 6:37 PM EDT [facility] Bacteria, Urine Negative Negative /HPF LAB URINALYSIS - AUTOMATED METHOD 03/16/2025 6:37 PM EDT [facility] Hyaline Casts, Urine 0.8 0 - 3 /LPF LAB URINALYSIS - AUTOMATED METHOD 03/16/2025 6:37 PM EDT [facility] Urine Urine specimen obtained by clean catch procedure / Unknown Non-blood Collection / Unknown 03/16/2025 1:54 PM EDT 03/16/2025 1:54 PM EDT Kassy ANGEL LAB URINE ORDERABLES Fin al Result [facility] [address] [place] [address], * Thyroid stimulating hormone with reflex to free t4 and free t3 (03/16/2025 1:54 PM EDT) Only the most recent of2 resultswithin the time period is included. TSH 2.33 0.40 - 4.00 mcIU/mL LAB CHEMISTRY METHOD 03/16/2025 6:10 PM EDT [facility] Blood Venous blood specimen / Unknown Venipuncture / Unknown 03/16/2025 1:54 PM EDT 03/16/2025 1:54 PM EDT us Deidre ANGEL LAB BLOOD ORDERABLES Final Result Performing Organization Address City/[facility]/ZIP Co de Phone Number [facility] [address] [place] [address], [place] [phone] * Culture urine (03/16/2025 1:54 PM EDT) Culture, Urine No growth 03/17/2025 1:39 PM EDT [facility] Urine Urine specimen obtained by clean catch procedure / Unknown Non-blood Collection / Unknown 03/16/2025 1:54 PM EDT 03/16/2025 6:37 PM EDT Kassy ANGEL LAB MICROBIOLOGY - GENER AL ORDERABLES Final Result Performing Organization Address [facility]/ZIP Co de Phone Number [facility] [address] [place] [address], [place] [phone] * XR Hip 2-3 Views Right (03/16/2025 [...] Signed Date: 03/16/2025 14:46 ET Workstation ID: [id number] Transcribed By: Self Edit Transcribed Date: 03/16/2025 [...] Signed Date: 03/16/2025 14:46 ET Workstation ID: [id number] Transcribed By: Self Edit Transcribed Date: 03/16/2025 14:45 ET Kassy ANGEL IMG XR PROCEDURES Final Result * POC glucose manually resulted (01/21/2025 4:26 PM EDT) [facility] Glucose POC 209 mg/dL Comment:non fasting Blood Capillary blood specimen / Unknown 01/21/2025 4:26 PM EDT Deidre ANGEL POINT OF CARE TEST ENTER/ED IT ORDERABLES Final Result * Free thyroxine with reflex to free triiodothyronine (01/20/2025 4:34 PM EDT) Pathologist [facility] [place] Free T4 1.01 0.70 - 1.80 ng/dL LAB CHEMISTRY METHOD 01/20/2025 8:51 PM EDT [facility] Blood Venous blood specimen / Unknown Venipuncture / Unknown 01/20/2025 4:34 PM EDT 01/20/2025 4:34 PM EDT us Soni ANGEL LAB BLOOD ORDERABLES Final Resul t [facility] [address] [place] [address], [place] [phone] * (ABNORMAL) CBC auto differential (01/20/2025 4:34 PM EDT) WBC 6.4 4.8 - 10.8 K/mcL LAB HEMETOLOGY METHOD 01/20/2025 6:00 PM EDT [facility] RBC 4.70 4.50 - 5.50 M/mcL LAB HEMETOLOGY METHOD 01/20/2025 6:00 PM EDT [facility] Hemoglobin 15.2 13.5 - 17.5 g/dL LAB HEMETOLOGY METHOD 01/20/2025 6:00 PM EDT [facility] Hematocrit 43.8 42.0 - 54.0 % LAB HEMETOLOGY METHOD 01/20/2025 6:00 PM EDT [facility] MCV 92.6 79.0 - 98.0 FL LAB HEMETOLOGY METHOD 01/20/2025 6:00 PM EDT [facility] MCH 32.1(H) 27.0 - 32.0 pcg LAB HEMETOLOGY METHOD 01/20/2025 6:00 PM EDT [facility] MCHC 34.7 32.0 - 37.0 g/dL LAB HEMETOLOGY METHOD 01/20/2025 6:00 PM EDT [facility] RDW 12.4 11.0 - 15.0 % LAB HEMETOLOGY METHOD 01/20/2025 6:00 PM EDT [facility] Platelets 268 130 - 400 K/mcL LAB HEMETOLOGY METHOD 01/20/2025 6:00 PM EDT [facility] MPV 9.9 7.0 - 11.0 FL LAB HEMETOLOGY METHOD 01/20/2025 6:00 PM [facility] NRBC 0.0 <1.0 % LAB HEMETOLOGY METHOD 01/20/2025 6:00 PM [facility] NRBC Absolute 0.00 <0.10 K/mcL LAB HEMETOLOGY METHOD 01/20/2025 6:00 PM [facility] Neutrophils Relative 33.9 % LAB HEMETOLOGY METHOD 01/20/2025 6:00 PM [facility] Lymphocytes Relative 54.7 % LAB HEMETOLOGY METHOD 01/20/2025 6:00 PM [facility] Monocytes Relative 10.0 % LAB HEMETOLOGY METHOD 01/20/2025 6:00 PM [facility] Eosinophils Relative 0.8 % LAB HEMETOLOGY METHOD 01/20/2025 6:00 PM [facility] Basophils Relative 0.3 % LAB HEMETOLOGY METHOD 01/20/2025 6:00 PM [facility] Immature Granulocytes Relative 0.3 % LAB HEMETOLOGY METHOD 01/20/2025 6:00 PM [facility] Neutrophils Absolute 2.18 1.50 - 7.00 K/mcL LAB HEMETOLOGY METHOD 01/20/2025 6:00 PM [facility] Lymphocytes Absolute 3.51 1.00 - 5.00 K/mcL LAB HEMETOLOGY METHOD 01/20/2025 6:00 PM [facility] Monocytes Absolute 0.64 0.20 - 1.00 K/mcL LAB HEMETOLOGY METHOD 01/20/2025 6:00 PM [facility] Eosinophils Absolute 0.05 0.00 - 0.50 K/mcL LAB HEMETOLOGY METHOD 01/20/2025 6:00 PM [facility] Basophils Absolute 0.02 0.00 - 0.20 K/[facility] LAB HEMETOLOGY METHOD 01/20/2025 6:00 PM EDT [facility] Immature Granulocytes Absolute 0.02 0.00 - 0.03 K/[facility] LAB HEMETOLOGY METHOD 01/20/2025 6:00 PM EDT [facility] Blood Venous blood specimen / Unknown Venipuncture / Unknown 01/20/2025 4:34 PM EDT 01/20/2025 4:34 PM EDT Kacey Kinsey MD LAB BLOOD ORDERABLES Final Resul t Performing Organization Address City/[facility]/ZIP Co de Phone Number [facility] [address] [place] [address], [place] [phone] * Triiodothyronine free (01/20/2025 4:34 PM EDT) T3, Free 322 230 - 420 pcg/dL LAB CHEMISTRY METHOD 01/20/2025 9:13 PM EDT [facility] Blood Venous blood specimen / Unknown Venipuncture / Unknown 01/20/2025 4:34 PM EDT 01/20/2025 4:34 PM EDT Soni ANGEL LAB BLOOD ORDERABLES Final Resul t Performing Organization Address [facility]/ZIP Co de Phone Number [facility] [address] [place] [address], [place] [phone] * (ABNORMAL) Hemoglobin A1c (01/20/2025 4:34 PM EDT) Hemoglobin A1C 8.3(H) <6.5 % LAB CHEMISTRY METHOD 01/20/2025 10:18 PM EDT [facility] Mean Bld Glu Estim. 192 mg/dL LAB CHEMISTRY METHOD 01/20/2025 10:18 PM EDT [facility] Blood Venous blood specimen / Unknown Venipuncture / Unknown 01/20/2025 4:34 PM EDT 01/20/2025 4:34 PM EDT us Soni ANGEL LAB BLOOD ORDERABLES Final Resul t [facility] [address] [place] [address], [place] [phone] * (ABNORMAL) Basic metabolic panel (01/20/2025 4:34 PM EDT) Sodium 137 133 - 145 mmol/L LAB CHEMISTRY METHOD 01/20/2025 7:18 PM [facility] Potassium 3.9 3.5 - 5.5 mmol/L LAB CHEMISTRY METHOD 01/20/2025 7:18 PM [facility] Chloride 102 96 - 110 mmol/L LAB CHEMISTRY METHOD 01/20/2025 7:18 PM [facility] CO2 30 21 - 32 mmol/L LAB CHEMISTRY METHOD 01/20/2025 7:18 PM [facility] Anion Gap 5 3 - 11 LAB CHEMISTRY METHOD 01/20/2025 7:18 PM [facility] Glucose 122(H) 70 - 100 mg/dL LAB CHEMISTRY METHOD 01/20/2025 7:18 PM [facility] BUN 17 5 - 25 mg/dL LAB CHEMISTRY METHOD 01/20/2025 7:18 PM [facility] Creatinine 0.92 0.70 - 1.30 mg/dL LAB CHEMISTRY METHOD 01/20/2025 7:18 PM [facility] eGFR 101 >=60 mL/min/1. 73m2 LAB CHEMISTRY METHOD 01/20/2025 7:18 PM [facility] Comment:Calculation based on the Chronic Kidney Disease Epidemiology Collaboration (CKD-EPI) equation refit without adjustment for race. BUN/Creatinine Ratio 18.5 LAB CHEMISTRY METHOD 01/20/2025 7:18 PM EDT [facility] Calcium 9.4 8.5 - 10.5 mg/dL LAB CHEMISTRY METHOD 01/20/2025 7:18 PM EDT [facility] Blood Venous blood specimen / Unknown Venipuncture / Unknown 01/20/2025 4:34 PM EDT 01/20/2025 4:34 PM EDT us Soni ANGEL LAB BLOOD ORDERABLES Final Resul t [facility] [address] [place] [address], [place] [phone] * XR Knee 4+ Views Right (01/20/2025 [...] Signed Date: 01/20/2025 17:18 ET Workstation ID: [id number] Transcribed By: Self Edit Transcribed Date: 01/20/2025 [...] -------- FINAL REPORT -------- Dictated By: Ashanti lAvarez Dictated Date: 01/20/2025 17:18 ET Assigned Physician: Ashanti Alvarez Reviewed and Electronically Signed By: Ashanti Alvarez Signed Date: 01/20/2025 17:18 ET Workstation ID: [id number] Transcribed By: Self Edit Transcribed Date: 01/20/2025 17:18 ET Kacey Kinsey MD IMG XR PROCEDURES Final Result * (ABNORMAL) Lipid panel with reflex to direct LDL (06/19/2024 10:02 AM EST) Cholesterol 224(H) 0 - 200 mg/dL LAB CHEMISTRY METHOD 06/19/2024 12:56 PM [facility] Triglycerides 278(H) 0 - 150 mg/dL LAB CHEMISTRY METHOD 06/19/2024 12:56 PM [facility] HDL 54 >=40 mg/dL LAB CHEMISTRY METHOD 06/19/2024 12:56 PM [facility] LDL Calculated 114(H) 0 - 100 mg/dL LAB CHEMISTRY METHOD 06/19/2024 12:56 PM [facility] VLDL Cholesterol Gabriel 55.6 mg/dL LAB CHEMISTRY METHOD 06/19/2024 12:56 PM [facility] Non HDL Chol. (LDL+VLDL) 170(H) <145 mg/dL LAB CHEMISTRY METHOD 06/19/2024 12:56 PM [facility] Chol/HDL Ratio 4.1 0.0 - 4.4 LAB CHEMISTRY METHOD 06/19/2024 12:56 PM [facility] Blood Venous blood specimen / Unknown Venipuncture / Unknown 06/19/2024 10:02 AM EST 06/19/2024 10:02 AM EST Nikhil ANGEL LAB BLOOD ORDERABLES Fin al Result [facility] [address] [place] [address], * Microalbumin creatinine urine ratio (06/19/2024 10:02 AM EST) Creatinine, Urine 56.0 mg/dL LAB CHEMISTRY METHOD 06/19/2024 1:14 PM EST [facility] Microalb, Ur 8.8 0.0 - 29.0 mg/L LAB CHEMISTRY METHOD 06/19/2024 1:14 PM EST [facility] Microalb/Creat Ratio 16 <30 mg/g creat LAB CHEMISTRY METHOD 06/19/2024 1:14 PM EST [facility] Urine Urine specimen obtained by clean catch procedure / Unknown Non-blood Collection / Unknown 06/19/2024 10:02 AM EST 06/19/2024 10:02 AM EST Nikhil ANGEL LAB URINE ORDERABLES Fin al Result Performing Organization Address [facility]/ZIP Co de Phone Number [facility] [address] [place] [address], * Hepatitis C Screening (07/10/2021) Pathologist [facility] Hepatitis C Screening Abstracted Historical Provider HEALTH MAINTENANCE Final Result from Last 3 Months or Most Recently Relevant to Health Maintenance Insurance [facility] Care Teams Music Historian Relationship Specialty Start Date End Date Kacey Kinsey MD [address] [place] [address] PCP - General Internal Medicine 06/08/20
--- OUTSIDE RECORDS SUMMARY | 2025-04-21 16:42 | XMS_ITS | Clinical Summary ---
Author Organization [facility] Address [address] [id number] Phone Care Team Providers Care Metal Crafts Teacher Name Role Phone Kacey Kinsey MD Primary Care Provider [phone] Allergies No known active allergies Medications dulaglutide [...] topic Medical Devices Not on file Insurance [facility] Care Teams Metal Crafts Teacher Relationship Specialty Start Date End Date Kacey Kinsey MD [address] [place] [id number] PCP - General Internal Medicine 01/30/24 Additional Source Comments The information contained in this document represents components of the legal health record. It is not the complete legal health record.[facility]
--- OUTSIDE RECORDS SUMMARY | 2025-04-21 16:42 | XMS_ITS | Encounter Summary ---
Author Organization [facility] Address [address] [place] [address] Care Team Providers Care Wire Coiler Name Role Phone Kacey Kinsey MD Primary Care Provider [phone] Reason for Referral * Consultation (Routine) - Authorized Specialty Diagnoses / Procedures Referred By Contac t Referred To Contact Pulmonary Disease / Pulmonology Diagnoses Lung nodule Kacey Kinsey MD [address] [place] [address] Phone: tel: fax: Nikolas Carrillo MD [address] [place] [phone] Phone: tel: fax: Referral ID Status Reason Start Date Expiration Date Visits Requested Visits Authorized [id number] Authorized Specialty Services Required 03/23/2025 03/23/2026 12 12 Reason for Visit * Reason Onset Date Comments Referral 03/18/2025 Encounter Details Date Type Department Care Team (Late st Contact Info) Description 03/18/2025 Telephone Adult Medicine [address] [phone] Kacey Kinsey MD [address] [place] [address] Social History Tobacco Use Types Packs/Day Years [...] EST Office Visit [facility] [place] [facility] [place] [address] [place], [place] [phone] Kacey Kinsey MD [address] [place] [address] 06/07/2025 8:00 AM EST Appointment [facility] [address] [place] [phone] Setf Rios DO [address] [facility] [address] [place] [address] 06/11/2025 1:00 PM EST Ancillary Procedure [facility] [address] [facility] [address] [place] [phone] 06/14/2025 4:40 PM EST Office Visit Endocrinology [address] [phone] Soni Ahn PA [address] [place] [address] Scheduled Referrals Name Type Priority Associated Diagnoses Order Schedule Ambulatory referral to Pulmonology Outpatient Referral Routine Lung nodule Expected: 04/22/2025, Expires: 03/18/2026 documented as of this encounter Visit Diagnoses Diagnosis Lung nodule- Primary Other diseases of lung, not elsewhere classified documented in this encounter Care Teams Wire Coiler Relationship Specialty Start Date End Date Kacey Kinsey MD [address] [place] [address] PCP - General Internal Medicine 06/08/20 documented as of this encounter
== END 2025-04-21 17:00 | disposition home or self-care (01) ==
LOC: HO.HUSH 16:26
PROVIDERS: PCP Internal Medicine; Visit Provider Urology
DX: Z12.5 Encounter for screening for malignant neoplasm of prostate (principal); R31.0 Gross hematuria
CPT/HCPCS: 99213